=== PATIENT | male | born 1945 | race Caucasian/White ===

== ENCOUNTER 2022-09-02 16:46 | Emergency (ER) | payer MEDICARE, SELFPAY ==
--- NOTE | ~2022-09-02 | US_ITS ---
EXAMINATION: US VENOUS ULTRASOUND WITH DOPPLER LOWER EXTREMITY, BILATERAL CLINICAL INFORMATION: Pain COMPARISON: None TECHNIQUE: Ultrasound of the deep veins is performed from the hip to the calf with compression sonography and color and pulse Doppler assessment. Spectral analysis with color-flow imaging is performed. FINDINGS: RIGHT: There is normal venous compression and respiratory variation and augmented flow. The visualized common femoral vein, superficial femoral vein, profunda femoral vein, popliteal vein, and the trifurcation region shows no evidence of deep venous thrombosis. There is no significant popliteal fossa cyst. LEFT: There is normal venous compression and respiratory variation and augmented flow. The visualized common femoral vein, superficial femoral vein, profunda femoral vein, popliteal vein, and the trifurcation region shows no evidence of deep venous thrombosis. There is no significant popliteal fossa cyst. If the patient's symptoms persist, followup ultrasound in 5 days 7 days might be of value to exclude proximal propagation from a non-visualized calf vein. US/US venous duplex LE BI IMPRESSION: No DVT demonstrated in the both lower extremity.
--- NOTE | ~2022-09-02 | XR_ITS ---
EXAMINATION: XR FOOT, RIGHT CLINICAL INFORMATION: Concern for osteomyelitis of the right second 2 COMPARISON: None TECHNIQUE: 3 views of the right foot. FINDINGS: No bone destruction or abnormal periosteal reaction. No radiographic evidence for osteomyelitis. There is osteopenia. No fracture. No dislocation. Small plantar calcaneal spur. XR/XR foot RT 2V IMPRESSION: No radiographic evidence for osteomyelitis. MRI would be more sensitive for detection of osteomyelitis.
[2022-09-02 17:26] VITALS: BP 150/74; PULSE 67; RESP 16; O2SAT 97; BMI 11.8
[2022-09-02 17:30] VITALS: TEMP 36.7
--- NOTE | 2022-09-02 17:31 | ED.GENADULT ---
HPI - General Adult General Chief complaint: Wound/Laceration Stated complaint: SORES ON R LEG. CATH SITE IRRITATION Time Seen by Provider: 09/02/22 17:31 Source: patient, family () and EMS Mode of arrival: EMS Limitations: no limitations History of Present Illness HPI narrative: Patient is a 77 year old assigned male at with a history of CKD and CVA with remaining right sided paralysis presenting to the emergency department today with bilateral lower leg sores. Patient states that over the last 2 weeks he has noticed that he has wounds on his lower legs and they seem to be getting worse. Patient's states that the patient has significant kidney disease that is followed by a tracer powder blender and his creatinine is usually in the 5s. Patient's states that the patient is almost entirely bed bound and they have providers that make house calls evaluate the patient regularly. Patient denies any dizziness, lightheadedness, abdominal pain, nausea, vomiting, fever, chills, blurry vision, double vision, loss of vision, chest pain, difficulty breathing, shortness of breath, back pain, night sweats, pain with urination, increased urinary frequency, increased urinary urgency, blood in his urine or stool, syncope or a near syncopal episode, recent trauma or falls, bowel incontinence, bladder incontinence, bowel retention, bladder retention, or any other complaints at this time. Onset (ago): week(s) (2) Location: left, right and lower extremity Radiation: non-radiation Severity: mild Severity scale (1-10): 3 Relieving factors: none Exacerbating factors: none Associated symptoms: denies other symptoms Treatments prior to arrival: none Related Data Allergies Allergy/AdvReac Type Severity Reaction Status Date / Time metformin [METFORMIN] Allergy Intermediate RASH Unverified 07/23/20 16:03 Review of Systems Constitutional: Constitutional: Reports no additional constitutional complaints, Denies chills, Denies fever(s) and Denies night sweats Eyes: Eyes: Reports no additional eye complaints, Denies blurry vision, Denies change in vision, Denies diplopia, Denies eye discharge, Denies loss of vision and Denies eye pain ENT: Denies dizziness Cardiovascular: Cardiovascular: Reports no additional cardiovascular complaints, Denies chest pain, Denies lightheadedness, Denies Loss of Consciousness and Denies dyspnea Respiratory: Respiratory: Reports no additional respiratory complaints and Denies dyspnea Gastrointestinal: Gastrointestinal: Reports no additional gastrointestinal complaints, Denies abdominal pain, Denies melena, Denies hematochezia, Denies change in bowel habits and Denies change in stool character Genitourinary: Genitourinary: Reports no additional male genitourinary complaints, Denies hematuria, Denies oliguria, Denies difficulty urinating, Denies dysuria, Denies urinary frequency, Denies urinary hesitancy, Denies urinary incontinence and Denies urinary urgency Musculoskeletal: Musculoskeletal: Reports no additional musculoskeletal complaints, Denies numbness and Denies tingling Integumentary/Breasts: Comments: bilateral lower leg wounds Neurologic: Denies dizziness, Denies loss of vision, Denies numbness and Denies tingling Psychiatric: Psychiatric: Reports no additional psychiatric complaints Endocrine: Endocrine: Reports no additional endocrine complaints Hematologic/Lymphatic: Hematologic/Lymphatic: Reports no additional hematologic/lymphatic complaints Allergic/Immunologic: Allergic/Immunologic: Reports no additional allergic/immunologic complaints PMFSH Past Medical History Attestation statement: The following information was validated with the patient. Source: old records reviewed and obtained from family (patient's ) Social History Social History Advance Directives: No Advance Directives Information Provided: No Physical Exam ED Vital Signs: Vital Signs - 24 hr 09/02/22 17:26 09/02/22 17:30 09/02/22 19:47 Temperature 98.0 F 97.8 F Pulse Rate 67 59 Respiratory Rate 16 18 Blood Pressure 150/74 H 144/67 H Pulse Oximetry 97 97 Oxygen Delivery Method Room Air Room Air BMI result Body Mass Index 11.8 Const General: cooperative, no acute distress, alert and awake Nutritional Appearance: well nourished Orientation/consciousness: patient oriented x3 Limitations: no limitations HENMT Head: Yes normal to inspection and Yes atraumatic Ears: hearing grossly normal bilaterally and external ears normal General nose exam: Normal external nose present, no nasal discharge noted and no epistaxis Face and sinus: Yes normal facial exam, No abrasion and No laceration Mouth: Normal oral and palatal mucosa present, no drooling and no muffled voice Eyes General: appearance normal, both eyes and all related structures Periorbital: periorbital findings normal Eyelids: Yes eyelids normal Conjunctivae: conjunctivae normal Pupils: Equal, round and reactive pupils present EOM: EOMs intact bilaterally Neck Neck: Yes normal visual inspection, Yes full ROM and Yes no lymphadenopathy Chest Chest palpation & inspection: normal inspection of the chest Resp Effort & Inspection: normal respiratory effort and able to speak in complete sentences Auscultation: clear to auscultation bilaterally Cardio Rate: regular rate Rhythm: regular rhythm GI Inspection: Yes normal to inspection Palpation (GI): Soft to palpation, not firm, nontender and no guarding Neuro General: patient oriented x3 and moves all extremities Cranial nerves: Yes Equal, round and reactive pupils present Cognition (Neuro): normal cognition Motor exam (neuro): Other motor observations present (has right sided deficit from previous CVA) Extrem Other: patient's bilateral lower legs show venous stasis dermatitis with scattered open areas and no surrounding erythema or warmth patient's right 2nd toe DIP joint has darker tissue present likely scab vs. necrotic tissue General: Yes capillary refill normal Psych Appearance: grossly normal Mental Status: mental status grossly normal Affect: normal affect Attitude: cooperative Thought process: Normal thought process present Thought content: Normal thought content present Insight: Good insight present (Psych) Medical Decision Making MDM Narrative Medical decision making narrative: Patient is a 77 year old assigned male at with a history of CKD and CVA presenting to the emergency department today with bilateral lower leg wounds. Patient's physical exam showed bilateral lower leg venous stasis dermatitis with scattered open areas throughout with no surrounding erythema or warmth and a small area of darker tissue on the right 2nd toe PIP joint consistent with a scab. Patient's wounds do not appear infected. Patient's blood work showed an elevated CR however, I confirmed with the patient's that this is his baseline. Patient's right foot x-ray and bilateral lower extremity doppler US showed no acute process. I explained my physical exam findings as well as all test results to the patient and the patient's . I answered all questions asked by the patient and the patient's . Case management was contacted to help set up VNA for the patient. I stressed the importance of the patient taking his medication as prescribed. I stressed the importance of the patient following up with his primary care provider, tracer powder blender, and the wound center. I stressed the importance of the patient returning to the emergency department immediately if his symptoms were to worsen or if he were to develop any dizziness, shortness of breath, difficulty breathing, chest pain, blurry vision, loss of vision, nausea, vomiting, abdominal pain, fever, chills, back pain, or any other complaints. Patient and the patient's verbalized agreement and understanding with this treatment plan and discharge. Medical Records Medical records reviewed: Yes I reviewed the patient's medical records. Lab Data Lab results reviewed: Yes I reviewed the patient's lab results. Result diagrams: 09/02/22 19:09/02/22 19: Labs: Lab Results 09/02/22 09/02/22 Range/Units 19: 19: WBC 10.9 H (4.8-10.8) X10*3/uL RBC 3.31 L (4.60-5.80) X10*6/uL Hgb 9.6 L (14.0-18.0) g/dl Hct 29.2 L (42.0-52.0) % MCV 88.2 (80.0-98.0) fL MCH 29.0 (27.0-33.0) pg MCHC 32.9 (31.0-36.0) g/dl RDW 13.1 (11.0-16.0) % Plt Count 228 (160-400) X10*3/uL MPV 8.8 L (9.4-12.4) fL Immature Gran % (Auto) 0.5 H (0.0-0.4) % Neut % (Auto) 69.3 (45-73) % Lymph % (Auto) 13.0 L (20-40) % Mccormick % (Auto) 9.5 (2-11) % Eos % (Auto) 7.2 H (0-4) % Baso % (Auto) 0.5 (0-2) % Lymph # (Auto) 1.4 (1.2-4.9) X10*3/uL Mccormick # (Auto) 1.0 (0.1-1.2) X10*3/uL Eos # (Auto) 0.8 H (0.0-0.4) X10*3/uL Baso # (Auto) 0.1 (0.0-0.2) X10*3/uL Abs Immat Gran (auto) 0.05 H (0.00-0.03) X10*3/uL Absolute Neuts (auto) 7.6 (2.0-8.3) x10*3/uL Absolute Nucleated RBC 0.000 (0.0-0.012) X10*3/uL Nucleated RBC % (auto) 0.0 (0.0-0.2) /100WBC Sodium 140 (135-145) mmol/L Potassium 4.7 (3.3-5.1) mmol/L Chloride 104 (96-108) mmol/L Carbon Dioxide 23 (22-29) mmol/L Anion Gap 18 (12-20) BUN 71 H (9-16) mg/dL Creatinine 5.34 H* (0.5-1.4) mg/dL Estim Creat Clear Calc 6.0 Estimated GFR 11 Random Glucose 113 (60-115) mg/dL Calcium 8.6 (8.4-10.2) mg/dL Magnesium 2.2 (1.6-2.6) mg/dL Total Bilirubin 0.4 (0.0-1.0) mg/dL AST 15 (5-37) U/L ALT 23 (0-40) U/L Alkaline Phosphatase 81 (39-117) U/L Total Creatine Kinase 35 L (38-174) U/L C-Reactive Protein 0.67 H (< or = 0.50) mg/dL Total Protein 6.0 L (6.5-8.0) g/dL Albumin 3.2 L (3.5-5.0) g/dL Imaging Data Right foot x-ray: Attestation: I personally reviewed and interpreted this imaging study as follows: My impression: No acute process. Radiologist's impression: EXAMINATION: XR FOOT, RIGHT CLINICAL INFORMATION: Concern for osteomyelitis of the right second 2? COMPARISON: None? TECHNIQUE: 3 views of the right foot. FINDINGS: No bone destruction or abnormal periosteal reaction. No radiographic evidence for osteomyelitis. There is osteopenia. No fracture. No dislocation. Small plantar calcaneal spur. XR/XR foot RT 2V IMPRESSION: No radiographic evidence for osteomyelitis. MRI would be more sensitive for detection of osteomyelitis. ? Dictated By: Buck Mace MD Signed By: Electronically signed by Buck Mace MD 09/02/22 [id number] Venous US: Attestation: I personally reviewed and interpreted this imaging study as follows: My impression: No acute process. Radiologist's impression: EXAMINATION:? US VENOUS ULTRASOUND WITH DOPPLER LOWER EXTREMITY, BILATERAL CLINICAL INFORMATION:? Pain COMPARISON:? None TECHNIQUE: Ultrasound of the deep veins is performed from the hip to the calf with compression sonography and color and pulse Doppler assessment. Spectral analysis with color-flow imaging is performed. FINDINGS: RIGHT: There is normal venous compression and respiratory variation and augmented flow. The visualized common femoral vein, superficial femoral vein, profunda femoral vein, popliteal vein, and the trifurcation region shows no evidence of deep venous thrombosis. ? There is no significant popliteal fossa cyst. LEFT: There is normal venous compression and respiratory variation and augmented flow. The visualized common femoral vein, superficial femoral vein, profunda femoral vein, popliteal vein, and the trifurcation region shows no evidence of deep venous thrombosis. ? There is no significant popliteal fossa cyst. If the patient's symptoms persist, followup ultrasound in 5 days 7 days might be of value to exclude proximal propagation from a non-visualized calf vein. US/US venous duplex LE BI IMPRESSION: No DVT demonstrated in the both lower extremity. Dictated By: Mason Arnold MD Signed By: Electronically signed by Mason Arnold MD 09/02/222007 Discharge Plan Discharge Clinical Impression: Venous stasis dermatitis Patient Disposition: Home, Self-Care Instructions: Venous Insufficiency (DC) Additional Instructions: Follow up with your primary care provider and the wound center. Return to the emergency department immediately if your symptoms worsen or if you develop any dizziness, shortness of breath, difficulty breathing, chest pain, blurry vision, loss of vision, nausea, vomiting, abdominal pain, fever, chills, back pain, or any other complaints. Referrals: [facility] – [place], [place] Wound Care Management [Provider Group] (Call to establish and follow up with the wound center. ) Jeancarlos Serna MD [Primary Care Provider] - Print Language: American
[2022-09-02 19:06] LABS: MANUAL DIFF FLAG NO
[2022-09-02 19:07] LABS: Basophils Absolute Auto 0.1 X10*3/uL (0.0-0.2); Basophils Percent Auto 0.5 % (0-2); Eosinophils Absolute Auto 0.8 X10*3/uL (0.0-0.4); Eosinophils Percent Auto 7.2 % (0-4); Hematocrit 29.2 % (42.0-52.0); Hemoglobin 9.6 g/dl (14.0-18.0); Imm Gran Abs Auto 0.05 X10*3/uL (0.00-0.03); Imm Gran Pct Auto 0.5 % (0.0-0.4); Lymphocytes Absolute Auto 1.4 X10*3/uL (1.2-4.9); Mean Corpuscular HGB Conc 32.9 g/dl (31.0-36.0); Mean Corpuscular Volume 88.2 fL (80.0-98.0); Mean Platelet Volume 8.8 fL (9.4-12.4); Monocytes Percent Auto 9.5 % (2-11); Neutrophils Absolute Auto 7.6 x10*3/uL (2.0-8.3); Neutrophils Percent Auto 69.3 % (45-73); Platelet Count 228 X10*3/uL (160-400); Red Blood Count 3.31 X10*6/uL (4.60-5.80); Red Cell Distribution Width 13.1 % (11.0-16.0); White Blood Count 10.9 X10*3/uL (4.8-10.8)
[2022-09-02 19:37] LABS: Alanine Aminotransferase 23 U/L (0-40); Albumin Level 3.2 g/dL (3.5-5.0); Alkaline Phosphatase 81 U/L (39-117); Anion Gap 18 (12-20); Aspartate Amino Transferase 15 U/L (5-37); Bilirubin Total 0.4 mg/dL (0.0-1.0); Blood Urea Nitrogen 71 mg/dL (9-16); C Reactive Protein 0.67 mg/dL (< or = 0.50); Calcium 8.6 mg/dL (8.4-10.2); Carbon Dioxide 23 mmol/L (22-29); Chloride 104 mmol/L (96-108); Estimated Glomerular Filt Rate 11; Glucose Random 113 mg/dL (60-115); Magnesium 2.2 mg/dL (1.6-2.6); Potassium 4.7 mmol/L (3.3-5.1); Sodium 140 mmol/L (135-145)
[2022-09-02 19:47] VITALS: BP 144/67; PULSE 59; RESP 18; TEMP 36.6; O2SAT 97
[2022-09-02 21:41] LABS: Erythrocyte Sedimentation Rate 25 MM/HR (0-15)
--- NOTE | 2022-09-02 22:17 | MHC.CM.ED ---
CM met with patient at request of Aubrie GUTIERRES. Pt is aware of discharge and need for VNA to assess his legs. Will speak with pt regarding VNA at patient request. Call to Tiffanie Leach, /HCP ([phone]). HCP is at home. has copies. Tiffanie cares for her since he has his stroke. Pt is home bound and wheelchair bound, but can stand and pivot to chair or to bed. Pt has R sided weakness.Pt has [employer] 1 hour/day/5 days a week and meals on wheels from [facility].PCP is Jeancarlos Serna. Vax/boosted x1/[employer]. Provider is requesting VNA for wound assessments and S&S infection, as pt cannot go to wound care. Referral placed to [facility]. Clinicals uploaded and F2F. would like a phone call with agency in the morning. CM to follow for d/c needs.
--- NOTE | 2022-09-03 11:47 | MHC.CM.PN ---
Addendum entered by Rosita Queen RN 09/03/22 13:03: [facility] IS WILLING TO ACCEPT FOR ASSESSMENT AND CARE PLAN OF WOUNDS. AGENCY TO CONTACT PCP. ZO [phone] AWARE Original Note: POST-DC NOTE PATIENT WAS NOT SEEN BY WOUND CARE AND DOES NOT HAVE ANY WOUND CARE ORDERS. HE ALSO HAS A CHRONIC [place] CATH (APPROX 1 YEAR) THAT IS MANAGED BY . PCP VISITS [id number] PATIENT IS BED BOUND. PCP NOT EXPECTED TO VISIT UNTIL MIDDLE OF MONTH OF SEPTEMBER. CASE MANAGEMENT ATTEMPTING TO SECURE ASSIST FOR PATIENT, WHO REPORTEDLY HAS HAD THESE WOUNDS FOR ONE MONTH
== END 2022-09-02 21:14 | disposition home or self-care (01) ==
PROVIDERS: Physician Assistant Medical; Emergency Provider Emergency Medicine Emergency Medical Services; PCP Internal Medicine
DX: I87.2 Venous insufficiency (chronic) (peripheral) (principal); R60.0 Localized edema; M79.671 Pain in right foot; Z79.899 Other long term (current) drug therapy
CPT/HCPCS: 36415; 73620; 80053; 82550; 83735; 85025; 85652; 86140; 93970; 99282; 99284

== ENCOUNTER 2022-12-16 10:03 | Inpatient (IN) | payer MEDICARE, SELFPAY ==
--- NOTE | ~2022-12-16 | IR_ITS ---
PROCEDURE: IR INSERTION OF CENTRAL VENOUS CATHETER CLINICAL INFORMATION: Chronic kidney disease. 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 COMPARISON: None TECHNIQUE: Procedure and risks and benefits including bleeding, infection and pneumothorax were discussed with the patient's healthcare proxy by telephone and informed consent was obtained. All elements of maximal sterile barrier technique followed including use of cap, mask, sterile gown, sterile gloves, a sterile full body drape and hand hygiene. Also followed skin preparation with 2% chlorhexidine for cutaneous antisepsis, and sterile ultrasound preparation with sterile gel and probe cover when applicable. The right neck and chest were prepped and draped in the usual sterile fashion. The skin and soft tissues of the right lower neck were anesthetized with 1% lidocaine plain. A small incision was made. Using ultrasound guidance and a 5 [place] micropuncture system, right internal jugular vein access was obtained. Over an 0.018 wire, a 5 [place] dilator was positioned in the SVC. The skin and soft tissues of the right upper anterior chest were anesthetized with 1% lidocaine plain. A small incision was made. A subcutaneous tunnel from the chest to the neck incision was anesthetized with 1% lidocaine plain. Using a tunneler, a 5 [place] single-lumen Proline catheter was tunneled from the chest to the neck incision. An 0.025 guidewire was advanced through the 5 [place] dilator into the IVC. A 5 [place] dilator was exchanged for a 6 [place] peel-away sheath. Using bent wire technique, catheter length was estimated and the catheter was cut. Catheter was fed out centrally through the peel-away sheath. Catheter length is 22 cm. Catheter tip is at the cavoatrial junction. The neck incision was closed using a 3-0 absorbable subcuticular suture. Chest incision was closed using a 3-0 absorbable mattress suture. Real-time ultrasound guidance was used to document venous entry and patency. Continuous hemodynamic monitoring was performed by registered nurse under my direct supervision. ANESTHESIA GIVEN: Patient received Versed 0.5 mg and fentanyl 25 mcg intravenously during the procedure. TOTAL SEDATION TIME: Total sedation time was 25 minutes. DAP: 33 Gy-cm2 FLUOROSCOPY TIME 0.3 minutes. FLUOROSCOPIC IMAGES: One saved. ULTRASOUND IMAGES: One saved. FINDINGS: There is a right internal jugular 5 [place] Proline catheter with tip projecting over the cavoatrial junction. IR/IR us guide venous access IMPRESSION: Right internal jugular 5 [place] single-lumen Proline catheter placement.
--- NOTE | ~2022-12-16 | XR_ITS ---
EXAMINATION: XR FOOT, LEFT CLINICAL INFORMATION: Left heel ulcer COMPARISON: None TECHNIQUE: AP, lateral, and oblique views of the left foot. FINDINGS: No fracture or dislocation. Hammertoe positioning of the digits. Osteopenia. No acute fracture. There is soft tissue defect over the posterior aspect of the left calcaneus. There is subtle erosion of the underlying bone. Prominent soft tissue calcification along the Achilles tendon. No ankle joint effusion. XR/XR foot LT min 3V IMPRESSION: Soft tissue defect over the posterior aspect of the calcaneus. There is subtle erosion of the underlying bone. This is concerning for osteomyelitis. Consider MRI evaluation if clinically indicated for further delineation.
--- NOTE | ~2022-12-16 | CT_ITS ---
EXAMINATION: CT FOOT WITHOUT CONTRAST, LEFT CLINICAL INFORMATION: Osteomyelitis. COMPARISON: Left foot radiographs dated 12/16/2022. TECHNIQUE: Contiguous axial CT images of the left foot were obtained without contrast. Multiplanar reformats were provided and reviewed. This CT examination was performed using dose optimization techniques as appropriate, variously including the following: *Automated exposure control *Adjustment of mA and/or kV according to patient size (this includes techniques or standardized protocols for targeted exams where dose is matched to indication/reason for exam; i.e. extremities or head) *Use of iterative reconstruction technique. DOSE: 221 mGy-cm. FINDINGS: Soft tissue ulceration at the dorsal aspect of the heel with an overlying bandage. The ulceration appears to measure up to 2.4 cm in craniocaudal dimension. There is adjacent cortical erosion and mild periosteal reaction at the posterior calcaneus measuring up to 1.9 x 1.3 cm (ML by CC), consistent with acute osteomyelitis. No acute fracture or dislocation. The ankle mortise is maintained. No talar osteochondral lesion. Plantar calcaneal spur. Severe joint space narrowing with marginal osteophytes and subchondral cystic change at the 1st metatarsophalangeal joint and hallux sesamoids. Corticated ossification in the region of the distal Achilles tendon with the tendon appearing attenuated and nearly completely absent distal to this area. Findings could represent dystrophic ossification related to remote trauma or a remote avulsion injury. Evaluation of the tendon is limited on CT examination. The remaining visualized flexor and extensor tendons are grossly intact, however, evaluation significantly limited. Diffuse muscle atrophy. Circumferential subcutaneous edema without organized fluid collection or abscess formation. CT/CT foot LT wo IV con IMPRESSION: 1. Soft tissue ulceration at the dorsal aspect of the heel measuring up to 2.4 cm in craniocaudal dimension. Adjacent cortical erosion and periosteal reaction at the posterior calcaneus measuring up to 1.9 cm, consistent with acute osteomyelitis. 2. Corticated ossification in the region of the distal Achilles tendon with the tendon appearing attenuated and nearly completely absent distal to this area. Findings could represent dystrophic ossification related to remote trauma or a remote avulsion injury. Evaluation of the tendon is limited on CT examination. 3. Circumferential subcutaneous edema without organized fluid collection or abscess formation. 4. 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
--- NOTE | ~2022-12-16 | US_ITS ---
EXAMINATION: US VENOUS ULTRASOUND WITH DOPPLER LOWER EXTREMITY, LEFT CLINICAL INFORMATION: Left lower extremity swelling COMPARISON: None TECHNIQUE: Ultrasound of the deep veins is performed from the hip to the calf with compression sonography and color and pulse Doppler assessment. Spectral analysis with color-flow imaging is performed. FINDINGS: There is normal venous compression and respiratory variation and augmented flow. The visualized common femoral vein, superficial femoral vein, profunda femoral vein, popliteal vein, and the trifurcation region shows no evidence of deep venous thrombosis. There is no significant popliteal fossa cyst. There is prominent subcutaneous popliteal fossa edema. If the patient's symptoms persist, followup ultrasound in 5 days 7 days might be of value to exclude proximal propagation from a non-visualized calf vein. US/US venous duplex LE LT IMPRESSION: No DVT demonstrated in the left lower extremity.
--- NOTE | ~2022-12-16 | IR_ITS ---
PROCEDURE: IR INSERTION OF CENTRAL VENOUS CATHETER CLINICAL INFORMATION: Chronic kidney disease. 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 COMPARISON: None TECHNIQUE: Procedure and risks and benefits including bleeding, infection and pneumothorax were discussed with the patient's healthcare proxy by telephone and informed consent was obtained. All elements of maximal sterile barrier technique followed including use of cap, mask, sterile gown, sterile gloves, a sterile full body drape and hand hygiene. Also followed skin preparation with 2% chlorhexidine for cutaneous antisepsis, and sterile ultrasound preparation with sterile gel and probe cover when applicable. The right neck and chest were prepped and draped in the usual sterile fashion. The skin and soft tissues of the right lower neck were anesthetized with 1% lidocaine plain. A small incision was made. Using ultrasound guidance and a 5 [place] micropuncture system, right internal jugular vein access was obtained. Over an 0.018 wire, a 5 [place] dilator was positioned in the SVC. The skin and soft tissues of the right upper anterior chest were anesthetized with 1% lidocaine plain. A small incision was made. A subcutaneous tunnel from the chest to the neck incision was anesthetized with 1% lidocaine plain. Using a tunneler, a 5 [place] single-lumen Proline catheter was tunneled from the chest to the neck incision. An 0.025 guidewire was advanced through the 5 [place] dilator into the IVC. A 5 [place] dilator was exchanged for a 6 [place] peel-away sheath. Using bent wire technique, catheter length was estimated and the catheter was cut. Catheter was fed out centrally through the peel-away sheath. Catheter length is 22 cm. Catheter tip is at the cavoatrial junction. The neck incision was closed using a 3-0 absorbable subcuticular suture. Chest incision was closed using a 3-0 absorbable mattress suture. Real-time ultrasound guidance was used to document venous entry and patency. Continuous hemodynamic monitoring was performed by registered nurse under my direct supervision. ANESTHESIA GIVEN: Patient received Versed 0.5 mg and fentanyl 25 mcg intravenously during the procedure. TOTAL SEDATION TIME: Total sedation time was 25 minutes. DAP: 33 Gy-cm2 FLUOROSCOPY TIME 0.3 minutes. FLUOROSCOPIC IMAGES: One saved. ULTRASOUND IMAGES: One saved. FINDINGS: There is a right internal jugular 5 [place] Proline catheter with tip projecting over the cavoatrial junction. IR/IR cvc insert non tunnel IMPRESSION: Right internal jugular 5 [place] single-lumen Proline catheter placement.
--- NOTE | 2022-12-16 10:24 | ED_ITS ---
HPI - General Adult General Chief complaint: Wound/Laceration Stated complaint: Poss L heel infection per EMS Time Seen by Provider: 12/16/22 10:06 Source: patient, family and EMS Mode of arrival: EMS Limitations: physical limitation (aphasia s/p CVA) History of Present Illness HPI narrative: Patient is a 77-year-old male presents emergency department via EMS. Obtained history from EMS personnel, requiring evaluation of left heel wound, that has been progressively worsening. Patient with significant aphasia at baseline, it is difficult to obtain history/ros from patient. Patient does have a dressing intact to the left heel, when asked to is changing this dressing he states Tiffanie , majority of his answers to questions are yes/no. Tiffanie is his , will contact her for additional information. when asked denies fevers, pain, numbness or tingling to the leg. Related Data Home Medications Medication Instructions Recorded Confirmed amlodipine 5 mg tablet 1 tab PO DAILY 12/16/22 12/16/22 atorvastatin 40 mg tablet 1 tab PO DAILY 12/16/22 12/16/22 calcitriol 0.25 mcg capsule 1 cap PO DAILY 12/16/22 12/16/22 carvedilol 25 mg tablet 1 tab PO DAILY 12/16/22 12/16/22 clonidine HCl 0.1 mg tablet 1 tab PO DAILY 12/16/22 12/16/22 doxycycline hyclate 100 mg capsule 1 cap PO BID 12/16/22 12/16/22 finasteride 5 mg tablet 1 tab PO DAILY 12/16/22 12/16/22 Allergies Allergy/AdvReac Type Severity Reaction Status Date / Time metformin [METFORMIN] Allergy Intermediate RASH Unverified 07/23/20 16:03 Review of Systems Review of Systems: Yes Unobtainable due to mental condition ( History of CVA, aphasia) [facility] Past Medical History Attestation statement: The following information was validated with the patient. Source: old records reviewed Medical History (Updated 12/16/22 @ 18:20 by Aspen Romero CNP) CVA (cerebral vascular accident) Social History Social History Alcohol intake: never Smoked in Last 30 Days: No Use of substances other than those prescribed or required for medical reasons: No Advance Directives: No Advance Directives Information Provided: Yes Physical Exam ED Vital Signs: Vital Signs - 24 hr 12/16/22 10:40 12/16/22 12:28 12/16/22 15:10 Temperature 98.1 F 97.9 F 98.6 F Pulse Rate 68 61 65 Respiratory Rate 14 16 16 Blood Pressure 145/65 H 131/59 L Pulse Oximetry 97 97 98 Oxygen Delivery Method Room Air Room Air Room Air BMI result Body Mass Index 28.0 Appearance: Alert. oriented to person. No acute distress.?Normal affect. Eyes: Pupils equal, round and reactive to light.? ENT: Pharynx normal.?? Neck: Normal inspection.? Neck supple.?? CVS: Heart sounds normal. Normal heart rate and rhythm.? Pulses normal.?? Respiratory: No respiratory distress.? Lung sounds clear to auscultation bilaterally?? Abdomen: Soft and non-tender. Normoactive bowel sounds. Skin: Skin warm and dry.? Normal skin color.? ? Extremities: No calf ttp? Neuro: Moves all extremities spontaneously. Sensation intact bilaterally. Course Reevaluation(s) Reevaluation #1: Called and spoke with patients spouse, Tiffanie Leach. She reports 2.5 weeks ago developed left heel wound, size of a pea. increasing in size. Left leg swelling over past few days, VNA in home, has been dressing the wound. VNA today called PCP, who advised Transfer to ER for further evaluation. Tiffanie also reports wound was evaluated by [facility], 5 days ago, received prescription for Doxycycline, despite being on this for the past 5 days has become increasingly worse in appearance, with increasing left leg swelling. She denies any known fevers for patient, states patient has not been reporting pain. He is nonambulatory at baseline, using wheelchair due to CVA. His primary care provider is Abbi Olmos NP through [facility]. Time: 10:24 Reevaluation #2: CBC reveals no leukocytosis There is however a left shift, has a normocytic anemia which appears slightly worse than prior labs August 2022, down 1 point, No recent CBC received from [facility] for comparison, no signs of active bleeding. CMP reveals creatinine 6.02, reviewed records obtained from [facility], appears slightly elevated from baseline; 11/04 BUN 58 and creatinine 5.7 / 12/02 BUN 67 and creatinine 5.7. Ultrasound reveals no evidence of DVT to the left lower extremity. X-ray imaging with soft tissue defect over the posterior aspect of the calcaneus with subtle erosion of the underlying bone concerning for osteomyelitis, at this time blood cultures and lactic acid ordered, will cover with ceftriaxone. ESR is elevated at 67, CRP 4.32. Time: 13:53 Reevaluation #3: Consulted with hospitalist Service, patient accepted for admission to Medicine Service under Dr. Real. patient updated on plan of care. Medications Administered Generic Name Dose Route Start Last Admin Trade Name Freq PRN Reason Stop Dose Admin Heparin Sodium (Porcine) 5,000 unit 12/16/22 17:00 12/16/22 17:24 Heparin Sodium,Porcine 5,000 Unit/Ml Vial SUBCUT 5,000 unit Q12H ROBBY Administration Discontinued Medications Generic Name Dose Route Start Last Admin Trade Name Freq PRN Reason Stop Dose Admin Sodium Chloride 1,000 mls @ 999 mls/hr 12/16/22 13:45 12/16/22 15:09 Ns IV 12/16/22 14:45 999 mls/hr .Q1H1M ROBBY Administration Ceftriaxone Sodium 2 gm/ 50 mls @ 100 mls/hr 12/16/22 13:59 12/16/22 16:07 Sodium Chloride IV 12/16/22 14:28 Infused ONCE ONE Infusion Cefepime HCl 2 gm/ Sodium 50 mls @ 100 mls/hr 12/16/22 16:57 12/16/22 17:24 Chloride IV 12/16/22 17:26 100 mls/hr ONCE ONE Administration Medical Decision Making Medical Decision Making [facility] Narrative: patient is a 77-year-old male with past medical history of CVA, residual right- sided paralysis, aphasia, hypertension, diabetes, CKD presenting to emergency department for evaluation of left heel wound. Admission/Observation Consideration of admission/observation: Escalation of care including admission/observation considered Consult Healthcare Provider Management of the patient was discussed with: Hospitalist Lab Data [facility] Lab Attestation statement: I reviewed the patient's lab results. 12/16/22 11:31 12/16/22 11:31 Labs: Lab Results 12/16/22 12/16/22 12/16/22 Range/Units 11:31 11:31 11:31 WBC 8.9 (4.8-10.8) X10*3/uL RBC 3.15 L (4.60-5.80) X10*6/uL Hgb 8.7 L (14.0-18.0) g/dl Hct 26.3 L (42.0-52.0) % MCV 83.5 (80.0-98.0) fL MCH 27.6 (27.0-33.0) pg MCHC 33.1 (31.0-36.0) g/dl RDW 12.8 (11.0-16.0) % Plt Count 344 D (160-400) X10*3/uL MPV 8.7 L (9.4-12.4) fL Immature Gran % (Auto) 0.3 (0.0-0.4) % Neut % (Auto) 76.1 H (45-73) % Lymph % (Auto) 12.0 L (20-40) % Castro % (Auto) 7.1 (2-11) % Eos % (Auto) 3.9 (0-4) % Baso % (Auto) 0.6 (0-2) % Lymph # (Auto) 1.1 L (1.2-4.9) X10*3/uL Castro # (Auto) 0.6 (0.1-1.2) X10*3/uL Eos # (Auto) 0.4 (0.0-0.4) X10*3/uL Baso # (Auto) 0.1 (0.0-0.2) X10*3/uL Abs Immat Gran (auto) 0.03 (0.00-0.03) X10*3/uL Absolute Neuts (auto) 6.8 (2.0-8.3) x10*3/uL Absolute Nucleated RBC 0.000 (0.0-0.012) X10*3/uL Nucleated RBC % (auto) 0.0 (0.0-0.2) /100WBC ESR 67 H (0-15) MM/HR Sodium 136 (135-145) mmol/L Potassium 5.1 (3.3-5.1) mmol/L Chloride 104 (96-108) mmol/L Carbon Dioxide 22 (22-29) mmol/L Anion Gap 15 (12-20) BUN 79 H (9-16) mg/dL Creatinine 6.02 H* (0.5-1.4) mg/dL Estim Creat Clear Calc 11.3 Estimated GFR 9 Random Glucose 138 H (60-115) mg/dL Lactic Acid (0.5-2.0) mmol/L Calcium 8.5 (8.4-10.2) mg/dL Iron 35 L (45-160) mcg/dL TIBC 132 L (228-428) mcg/dL % Saturation 27 (15-50) % Unsat Iron Binding 97 ug/dL Ferritin 548 H (20-250) ng/mL Total Bilirubin 0.5 (0.0-1.0) mg/dL AST 21 (5-37) U/L ALT 43 H (0-40) U/L Alkaline Phosphatase 92 (39-117) U/L C-Reactive Protein 4.32 H (< or = 0.50) mg/dL Total Protein 5.9 L (6.5-8.0) g/dL Albumin 3.0 L (3.5-5.0) g/dL Vitamin B12 317 (200-900) pg/mL Folate 8.1 (> or = 4.0) ng/mL 12/16/22 Range/Units 14:31 WBC (4.8-10.8) X10*3/uL RBC (4.60-5.80) X10*6/uL Hgb (14.0-18.0) g/dl Hct (42.0-52.0) % MCV (80.0-98.0) fL MCH (27.0-33.0) pg MCHC (31.0-36.0) g/dl RDW (11.0-16.0) % Plt Count (160-400) X10*3/uL MPV (9.4-12.4) fL Immature Gran % (Auto) (0.0-0.4) % Neut % (Auto) (45-73) % Lymph % (Auto) (20-40) % Castro % (Auto) (2-11) % Eos % (Auto) (0-4) % Baso % (Auto) (0-2) % Lymph # (Auto) (1.2-4.9) X10*3/uL Castro # (Auto) (0.1-1.2) X10*3/uL Eos # (Auto) (0.0-0.4) X10*3/uL Baso # (Auto) (0.0-0.2) X10*3/uL Abs Immat Gran (auto) (0.00-0.03) X10*3/uL Absolute Neuts (auto) (2.0-8.3) x10*3/uL Absolute Nucleated RBC (0.0-0.012) X10*3/uL Nucleated RBC % (auto) (0.0-0.2) /100WBC ESR (0-15) MM/HR Sodium (135-145) mmol/L Potassium (3.3-5.1) mmol/L Chloride (96-108) mmol/L Carbon Dioxide (22-29) mmol/L Anion Gap (12-20) BUN (9-16) mg/dL Creatinine (0.5-1.4) mg/dL Estim Creat Clear Calc Estimated GFR Random Glucose (60-115) mg/dL Lactic Acid 0.7 (0.5-2.0) mmol/L Calcium (8.4-10.2) mg/dL Iron (45-160) mcg/dL TIBC (228-428) mcg/dL % Saturation (15-50) % Unsat Iron Binding ug/dL Ferritin (20-250) ng/mL Total Bilirubin (0.0-1.0) mg/dL AST (5-37) U/L ALT (0-40) U/L Alkaline Phosphatase (39-117) U/L C-Reactive Protein (< or = 0.50) mg/dL Total Protein (6.5-8.0) g/dL Albumin (3.5-5.0) g/dL Vitamin B12 (200-900) pg/mL Folate (> or = 4.0) ng/mL Independent Interpretation I performed an independent interpretation of an: Plain X-Ray ( I personally interpreted x-ray of the right heel and agree with radiologist impression.) and Ultrasound Radiology Impression Radiologist Impression: XR/XR foot LT min 3V IMPRESSION: Soft tissue defect over the posterior aspect of the calcaneus. There is subtle erosion of the underlying bone. This is concerning for osteomyelitis. Consider MRI evaluation if clinically indicated for further delineation. US/US venous duplex LE LT IMPRESSION: No DVT demonstrated in the left lower extremity. Critical Care Time Critical Care Time Critical Care Time: Yes Total Critical Care Time: 30 Attestation: I personally attest to this critical care time spent taking care of the patient exclusive of all other billable procedures was approximately 30 minutes including initial evaluation of patient, ordering tests, x-ray interpretation, EKG interpretation, medical consultation, documentation, re-evaluation. Discharge Plan Discharge Clinical Impression: Wound of left foot, CKD (chronic kidney disease) Patient Disposition: Admitted As Inpatient
--- NOTE | 2022-12-16 10:30 | MHC.EDTECH ---
This PCT with nurse present . Patient has a wound to left heal. Wound was cleans with normal saline follow by telfa and bulk dressing .Dressing is timed and dated .Left leg elevated on pillow.
[2022-12-16 10:40] VITALS: BP 180/70; PULSE 68; PULSE 73; RESP 14; TEMP 36.7; O2SAT 96; O2SAT 97; BMI 28.0
--- NOTE | 2022-12-16 10:55 | PC.NURSE ---
pt off to xray via stretcher.
--- NOTE | 2022-12-16 11:00 | PC.NURSE ---
pt has large ulcer to l heel which is odorous. area was cleansed and dressed with clean dry dressing. small amt of yellow drainage noted. small eschar area noted on wound. per mlp (sharee, states per ) wound is 2.5wks old and pt has been on abt. l lower leg is swollen. leg is elevated on a pillow.
[2022-12-16 11:37] LABS: MANUAL DIFF FLAG NO
[2022-12-16 11:48] LABS: Basophils Absolute Auto 0.1 X10*3/uL (0.0-0.2); Basophils Percent Auto 0.6 % (0-2); Eosinophils Absolute Auto 0.4 X10*3/uL (0.0-0.4); Eosinophils Percent Auto 3.9 % (0-4); Hematocrit 26.3 % (42.0-52.0); Hemoglobin 8.7 g/dl (14.0-18.0); Imm Gran Abs Auto 0.03 X10*3/uL (0.00-0.03); Imm Gran Pct Auto 0.3 % (0.0-0.4); Lymphocytes Absolute Auto 1.1 X10*3/uL (1.2-4.9); Mean Corpuscular HGB Conc 33.1 g/dl (31.0-36.0); Mean Corpuscular Hemoglobin 27.6 pg (27.0-33.0); Mean Corpuscular Volume 83.5 fL (80.0-98.0); Mean Platelet Volume 8.7 fL (9.4-12.4); Monocytes Absolute Auto 0.6 X10*3/uL (0.1-1.2); Monocytes Percent Auto 7.1 % (2-11); Neutrophils Absolute Auto 6.8 x10*3/uL (2.0-8.3); Neutrophils Percent Auto 76.1 % (45-73); Platelet Count 344 X10*3/uL (160-400); Red Blood Count 3.15 X10*6/uL (4.60-5.80); Red Cell Distribution Width 12.8 % (11.0-16.0); White Blood Count 8.9 X10*3/uL (4.8-10.8)
[2022-12-16 12:28] VITALS: BP 145/65; PULSE 61; RESP 16; TEMP 36.6; O2SAT 97
[2022-12-16 12:32] LABS: Erythrocyte Sedimentation Rate 67 MM/HR (0-15)
[2022-12-16 13:03] LABS: Alanine Aminotransferase 43 U/L (0-40); Alkaline Phosphatase 92 U/L (39-117); Anion Gap 15 (12-20); Aspartate Amino Transferase 21 U/L (5-37); Bilirubin Total 0.5 mg/dL (0.0-1.0); Blood Urea Nitrogen 79 mg/dL (9-16); C Reactive Protein 4.32 mg/dL (< or = 0.50); Calcium 8.5 mg/dL (8.4-10.2); Carbon Dioxide 22 mmol/L (22-29); Chloride 104 mmol/L (96-108); Creatinine Clr Calc Pharmacy 11.3; Estimated Glomerular Filt Rate 9; Glucose Random 138 mg/dL (60-115); Potassium 5.1 mmol/L (3.3-5.1); Sodium 136 mmol/L (135-145); Total Protein 5.9 g/dL (6.5-8.0)
[2022-12-16 14:52] LABS: Lactic Acid 0.7 mmol/L (0.5-2.0)
--- NOTE | 2022-12-16 15:05 | MHC.EDTECH ---
patient ate 100% of his food , change lined and reposition patient . relaxing watching TV.
[2022-12-16] MEDS: cefTRIAXone sodium 2 GM in 0.9 % Sodium Chloride 50 ML IV (15:09)
[2022-12-16] MEDS: 0.9 % Sodium Chloride 1,000 ML 999 ML IV (15:09)
[2022-12-16 15:10] VITALS: BP 131/59; PULSE 65; RESP 16; TEMP 37; O2SAT 98
--- NOTE | 2022-12-16 15:40 | PHA.MEDREC ---
Pharmacy Consult ? Medication Reconciliation Pharmacy has completed the medication reconciliation. Pt takes coreg 25 mg daily and clonidine 0.1 mg daily per
--- NOTE | 2022-12-16 16:01 | PM.IMHP ---
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 Pt accompanied by supplements HPI. Pt has right-sided hemiparesis s/p CVA 5 1/2 years ago and is essentially bedbound. states that patient developed a tiny graciela on his foot 2 and half weeks ago that continued to grow and develop quickly. Patient was unable to see PCP but wound was seen and cared for by VNA. Wound also evaluated by [facility] who prescribed Doxycycline 5 days ago. Left leg swelling began a few days ago. Wound continued to grow and swelling increased until PCP called and pt told to go to ED for evaluation. Patient's only other complaint is an occasional dry chronic cough. Pt denies pain in the foot or leg. No fever, chills, nausea, vomiting. No abdominal pain. No headache, vision changes. No chest pain/pressure, palpitations. Denies shortness of breath. ? In the ED patient was afebrile. Labs were significant for no leukocytosis, H&H of 8.7/26.3, creatinine 6.02, BUN 79, lactic acid WNL at 0.7, ESR elevated at 67, C-reactive protein elevated at 4.32. X-ray of foot showed soft tissue defect over the posterior aspect of the calcaneus with subtle erosion of the underlying bone, concerning for osteomyelitis. Venous duplex showed no DVT in the left lower extremity. Pt was treated with ceftriaxone. Pt will be admitted to the hospital for treatment and further evaluation left heel wound concerning for osteomyelitis. [facility] Medical History (Updated 12/16/22 @ 18:20 by Aspen Romero CNP) CVA (cerebral vascular accident) Social History Household Members: Unknown / Unable to assess Housing: House Do you presently have visiting nurse or other home services: Yes Alcohol intake: never Patient Tobacco Use Status: Never used Tobacco Smoked in Last 30 Days: No Use of substances other than those prescribed or required for medical reasons: No Currently Displaying Signs/Symptoms of Drug Intoxication Withdrawal: No Have you been hit, kicked, punched, or otherwise hurt by someone within the past year? If so, by whom?: No Do you feel safe in your current relationship?: Yes Is there a partner from a previous relationship who is making you feel unsafe now?: No Are you made to feel afraid or neglected: No Advance Directives: No Advance Directives Information Provided: Yes Do you have thoughts of harming others: None Do you have a plan to hurt others: No Plan Recently lost weight without trying: No How much weight loss: Not applicable Eating poorly because of decreased appetite: No Nutrition screen score: 0 Nutrition Risks: No Nutritional Risk Poor oral hygiene: No Meds Allergies Allergy/AdvReac Type Severity Reaction Status Date / Time metformin [METFORMIN] Allergy Intermediate RASH Unverified 07/23/20 16:03 Active Medications: Current Medications Pharmacy Consult (Consult Rx Perform Med Rec) 1 each MISCELLANE ONCE PRN PRN Reason: Consult order Home Medications Medication Instructions Recorded Confirmed Last Taken Type amlodipine 5 mg tablet 1 tab PO DAILY 12/16/22 12/16/22 12/16/22 History atorvastatin 40 mg tablet 1 tab PO DAILY 12/16/22 12/16/22 12/16/22 History calcitriol 0.25 mcg capsule 1 cap PO DAILY 12/16/22 12/16/22 12/16/22 History carvedilol 25 mg tablet 1 tab PO DAILY 12/16/22 12/16/22 12/16/22 History clonidine HCl 0.1 mg tablet 1 tab PO DAILY 12/16/22 12/16/22 12/16/22 History doxycycline hyclate 100 mg capsule 1 cap PO BID 12/16/22 12/16/22 12/16/22 History finasteride 5 mg tablet 1 tab PO DAILY 12/16/22 12/16/22 12/16/22 History Physical Exam Vital Signs and Narrative: Vital Signs: Last Vital Signs Temp 98.6 F 12/16/22 15:10 Pulse 65 12/16/22 15:10 Resp 16 12/16/22 15:10 BP 131/59 L 12/16/22 15:10 Pulse Ox 98 12/16/22 15:10 O2 Del Method 12/16/22 15:10 BMI result Body Mass Index 28.0 Constitutional: Alert, in no acute distress. Mental Status: Oriented to person, place and time. Eyes: Pupils are equal, round, and reactive to light. Ear, Nose, and Throat: Oropharynx clear, mucous membranes moist. Ears and nose without deformities. Trachea midline. Respiratory: Clear to auscultation bilaterally. No wheezing, rales, or rhonchi. Cardiovascular: S1, S2 regular. No murmurs, rubs, or gallops. Gastrointestinal: Abdomen soft, non-tender, non-distended. Normal bowel sounds. Neurologic: Pt with right-sided paralysis. Musculoskeletal: Right arm and hand contracted. Extremities: Open wound on left heel, as pictured below. Lower left leg swelling and warmth, as below. Psychiatric: Normal mood and affect. Results Labs 12/16/22 11:31 12/16/22 11:31 Labs: Laboratory Results - last 24 hr 12/16/22 12/16/22 12/16/22 11:31 11:31 11:31 MCV 83.5 MCH 27.6 MCHC 33.1 RDW 12.8 Plt Count 344 D MPV 8.7 L Immature Gran % (Auto) 0.3 Neut % (Auto) 76.1 H Lymph % (Auto) 12.0 L Mineral % (Auto) 7.1 Eos % (Auto) 3.9 Baso % (Auto) 0.6 Lymph # (Auto) 1.1 L Mineral # (Auto) 0.6 Eos # (Auto) 0.4 Baso # (Auto) 0.1 Abs Immat Gran (auto) 0.03 Absolute Neuts (auto) 6.8 Absolute Nucleated RBC 0.000 Nucleated RBC % (auto) 0.0 ESR 67 H Anion Gap 15 Estim Creat Clear Calc 11.3 Estimated GFR 9 Random Glucose 138 H Lactic Acid Calcium 8.5 Total Bilirubin 0.5 AST 21 ALT 43 H Alkaline Phosphatase 92 C-Reactive Protein 4.32 H Total Protein 5.9 L Albumin 3.0 L 12/16/22 14:31 MCV MCH MCHC RDW Plt Count MPV Immature Gran % (Auto) Neut % (Auto) Lymph % (Auto) Mineral % (Auto) Eos % (Auto) Baso % (Auto) Lymph # (Auto) Mineral # (Auto) Eos # (Auto) Baso # (Auto) Abs Immat Gran (auto) Absolute Neuts (auto) Absolute Nucleated RBC Nucleated RBC % (auto) ESR Anion Gap Estim Creat Clear Calc Estimated GFR Random Glucose Lactic Acid 0.7 Calcium Total Bilirubin AST ALT Alkaline Phosphatase C-Reactive Protein Total Protein Albumin Imaging Radiologist's Impressions: Impressions Venous Duplex 12/16/22 11:05 IMPRESSION: No DVT demonstrated in the left lower extremity. Foot X-Ray 12/16/22 11:10 IMPRESSION: Soft tissue defect over the posterior aspect of the calcaneus. There is subtle erosion of the underlying bone. This is concerning for osteomyelitis. Consider MRI evaluation if clinically indicated for further delineation. 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 Pt will be admitted to the hospital for treatment and further evaluation left heel wound concerning for osteomyelitis. Left heel wound concerning for osteomyelitis X-ray of left foot shows soft tissue defect over the posterior aspect of the calcaneus with subtle erosion of the underlying bone, concerning for osteomyelitis Elevated CRP and ESR, no leukocytosis or fever Patient does not meet sepsis criteria IV abx: Doxycycline and cefepime Keep foot elevated off bed Wound care consult ID consult General surgery consult CKD Patient's creatinine 6.02, last measured at [facility] on 12/02/2022 at 5.7 with BUN 67 Pt received 1L IVF in ED Follow labs Nephrology consult Anemia, chronic Patient's H&H of 8.7/26.3, slightly lower than baseline No obvious source of bleeding, pt denies hematemesis, hematochezia, melena Iron studies, B12, folate Hx of CVA with right-sided hemiparesis Pt seems stable, at baseline Pt eats regular diet with thin liquids at home Pt positioning q2hrs HLD Continue home meds HTN Continue home meds DNR/DNI Attending:?Dr. Real DVT Prophylaxis: Heparin Pt will require a hospitalization of at least two nights for treatment of?left heel wound concerning for osteomyelitis with IV abx. Time Spent With Patient Time: Total time managing care of this patient today ____ minutes. Quality Stroke Does the patient have a stroke diagnosis?: No VTE Prior VTE?: No VTE Risk Level:: Medical - moderate - high VTE Device Contraindication: Treatment Not Indicated VTE Drug Contraindication: N/A - Med Ordered
--- NOTE | 2022-12-16 16:55 | P.EN_ITS ---
Event Note Date of Service: 12/17/22 Event Note: This patient is seen and examined: 77-year-old male with multiple comorbidities including hypertension, Hypercholesteremia, ckd 5?,history of CVA and right-sided weakness: Came to the hospital because of possible leg swelling as well as wound on the left heel area : As per the ED documentation as well as talking to his : Patient had a small wound to and have week ago but subsequently started to get enlarged and is was given outpatient doxycycline 5 days ago and but wound is still getting worse and subsequently was brought to the emergency room. Patient has some soreness but denies any significant pain Denies any chest pain shortness breath or fever or chills or nausea vomiting Lab imaging: ESR and CRP elevated, lactic acid normal, blood culture pending XR foot LT min 3V IMPRESSION: Soft tissue defect over the posterior aspect of the calcaneus. There is subtle erosion of the underlying bone. This is concerning for osteomyelitis. Consider MRI evaluation if clinically indicated for further delineation. Physical exam: Appearance: Alert.? Oriented X3.? cvs: rrr, [id number] , no murmur res: clear to auscultation ,no rhonchii or wheezing abd: no rebound or guarding ,nt, bs present. ext pulses present , no cyanosis, mild left leg swellin. neuro: axo3 , nonfocal. assessment and plan coordinated in APCs note, Agree with the plan in addition: possible osteo? : started iv antibiotivs Frequent turning, wound care Will add id evaluation for possible osteo and surgery input for foot wound. Time Spent With Patient Time: Total time managing care of this patient today ____ minutes.
[2022-12-16] MEDS: cefEPime HCl 2 GM in 0.9 % Sodium Chloride 50 ML IV (17:24)
[2022-12-16] MEDS: Heparin Sodium,Porcine 5,000 UNIT/ML VIAL 5000 UNIT SUBCUT (17:24)
[2022-12-16 17:25] LABS: Iron 35 mcg/dL (45-160); Percent Iron Saturation 27 % (15-50); Total Iron Binding Capacity 132 mcg/dL (228-428); Unsaturated Iron Binding 97 ug/dL
[2022-12-16 17:43] LABS: COVID-19 Test Negative (Negative); IDNOW Serial# 16C4AD1C
[2022-12-16 17:52] LABS: Ferritin 548 ng/mL (20-250); Folate 8.1 ng/mL (> or = 4.0); Vitamin B12 317 pg/mL (200-900)
--- NOTE | 2022-12-16 19:20 | PC.NURSE ---
per day shift RN patient had 3 iv lines that infiltrated. cefepime antibiotic still not complete. doxycycline to be administered next. will need to attempt for another iv line . patient has R sided CVA therefore can only access the L arm
--- NOTE | 2022-12-16 20:12 | PC.NURSE ---
Raul THIBODEAUX successfully placed iv line #22g iv. cefepime antibiotic running no issues.
[2022-12-16 20:23] VITALS: BP 162/66; PULSE 79; RESP 16; O2SAT 97
[2022-12-16] MEDS: Doxycycline Hyclate 100 MG in 0.9 % Sodium Chloride 250 ML 166.67 MG IV (20:25)
[2022-12-16] MEDS: ondansetron HCL 4 MG/2 ML VIAL IVPUSH (20:28)
--- NOTE | 2022-12-16 23:30 | PC.NURSE ---
report given to industrial paramedic . patient to go to room 384.
[2022-12-17 03:50] VITALS: BP 158/72; PULSE 66; RESP 18; TEMP 36.5; O2SAT 94
[2022-12-17] MEDS: Doxycycline Hyclate 100 MG in 0.9 % Sodium Chloride 250 ML 166.67 MG IV (06:18)
[2022-12-17] MEDS: Heparin Sodium,Porcine 5,000 UNIT/ML VIAL 5000 UNIT SUBCUT ×2 (06:21→16:51)
[2022-12-17 06:58] LABS: Anion Gap 17 (12-20); Blood Urea Nitrogen 79 mg/dL (9-16); Calcium 8.2 mg/dL (8.4-10.2); Carbon Dioxide 19 mmol/L (22-29); Chloride 108 mmol/L (96-108); Creatinine Clr Calc Pharmacy 11.3; Estimated Glomerular Filt Rate 9; Glucose Random 99 mg/dL (60-115); Potassium 4.9 mmol/L (3.3-5.1); Sodium 139 mmol/L (135-145)
[2022-12-17 07:48] VITALS: BP 157/66; PULSE 68; RESP 20; TEMP 36.8; O2SAT 97
[2022-12-17] MEDS: calcitrioL 0.25 MCG CAPSULE PO (09:24)
[2022-12-17] MEDS: carvediloL 25 MG TABLET PO (09:24)
[2022-12-17] MEDS: amLODIPine Besylate 5 MG TABLET PO (09:24)
[2022-12-17] MEDS: Atorvastatin Calcium 40 MG TABLET PO (09:24)
[2022-12-17] MEDS: cloNIDine HCL 0.1 MG TABLET PO (09:24)
[2022-12-17] MEDS: cefEPime HCl 1 GM in 0.9 % Sodium Chloride 50 ML IV (09:25)
[2022-12-17] MEDS: Finasteride 5 MG TABLET PO (09:25)
--- NOTE | 2022-12-17 11:21 | PM.CNNEP ---
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 Pt accompanied by supplements HPI.? Pt has right-sided hemiparesis s/p CVA 5 1/2 years ago and is essentially bedbound.? states that patient developed a tiny graciela on his foot 2 and half weeks ago that continued to grow and develop quickly.? Patient was unable to see PCP but wound was seen and cared for by [facility]NA. Wound also evaluated by [facility] who prescribed Doxycycline 5 days ago. Left leg swelling began a few days ago.? Wound continued to grow and swelling increased until PCP called and pt told to go to ED for evaluation. Patient's only other complaint is an occasional dry chronic cough. Pt denies pain in the foot or leg. No fever, chills, nausea, vomiting. No abdominal pain.? No headache, vision changes.? No chest pain/pressure, palpitations.? Denies shortness of breath. ? Has CKD and sees ? Review of Systems Review of Systems Patient's only other complaint is an occasional dry chronic cough. Pt denies pain in the foot or leg. No fever, chills, nausea, vomiting. No abdominal pain.? No headache, vision changes.? No chest pain/pressure, palpitations.? Denies shortness of breath PMF Past Medical History Medical History CVA (cerebral vascular accident) Social History Social History Household Members: Unknown / Unable to assess Housing: House Do you presently have visiting nurse or other home services: Yes Alcohol intake: never Patient Tobacco Use Status: Never used Tobacco service: No Current occupational status: retired Meds Allergies Allergy/AdvReac Type Severity Reaction Status Date / Time metformin [METFORMIN] Allergy Intermediate RASH Unverified 07/23/20 16:03 Active Medications: Current Medications Acetaminophen (Acetaminophen 325 Mg Tablet) 650 mg PO Q6H PRN PRN Reason: Pain, Mild (Pain Scale 1-3) Amlodipine Besylate (Amlodipine Besylate 5 Mg Tablet) 5 mg PO DAILY [facility]; Protocol Last Admin: 12/17/22 09:24 Dose: 5 mg Atorvastatin Calcium (Atorvastatin Calcium 40 Mg Tablet) 40 mg PO DAILY [facility] Last Admin: 12/17/22 09:24 Dose: 40 mg Calcitriol (Calcitriol 0.25 Mcg Capsule) 0.25 mcg PO DAILY [facility] Last Admin: 12/17/22 09:24 Dose: 0.25 mcg Carvedilol (Carvedilol 25 Mg Tablet) 25 mg PO DAILY [facility]; Protocol Last Admin: 12/17/22 09:24 Dose: 25 mg Clonidine HCl (Clonidine Hcl 0.1 Mg Tablet) 0.1 mg PO DAILY [facility]; Protocol Last Admin: 12/17/22 09:24 Dose: 0.1 mg Docusate Sodium (Docusate Sodium 100 Mg Capsule) 100 mg PO DAILY PRN PRN Reason: Constipation Finasteride (Finasteride 5 Mg Tablet) 5 mg PO DAILY [facility] Last Admin: 12/17/22 09:25 Dose: 5 mg Heparin Sodium (Porcine) (Heparin Sodium,Porcine 5,000 Unit/Ml Vial) 5,000 unit SUBCUT Q12H [facility] Last Admin: 12/17/22 06:21 Dose: 5,000 unit Cefepime HCl 1 gm/ Sodium (Chloride) 50 mls @ 100 mls/hr IV Q24H [facility] Last Infusion: 12/17/22 10:45 Dose: Infused Doxycycline Hyclate 100 mg/ (Sodium Chloride) 250 mls @ 166.67 mls/hr IV Q12H [facility] Last Infusion: 12/17/22 08:30 Dose: Infused Ondansetron HCl (Ondansetron Hcl 4 Mg/2 Ml Vial) 4 mg IVPUSH Q8H PRN PRN Reason: Nausea and Vomiting Last Admin: 12/16/22 20:28 Dose: 4 mg Pharmacy Consult (Consult Rx Perform Med Rec) 1 each MISCELLANE ONCE PRN PRN Reason: Consult order Home Medications Medication Instructions Recorded Confirmed Last Taken Type amlodipine 5 mg tablet 1 tab PO DAILY 12/16/22 12/16/22 12/16/22 History atorvastatin 40 mg tablet 1 tab PO DAILY 12/16/22 12/16/22 12/16/22 History calcitriol 0.25 mcg capsule 1 cap PO DAILY 12/16/22 12/16/22 12/16/22 History carvedilol 25 mg tablet 1 tab PO DAILY 12/16/22 12/16/22 12/16/22 History clonidine HCl 0.1 mg tablet 1 tab PO DAILY 12/16/22 12/16/22 12/16/22 History doxycycline hyclate 100 mg capsule 1 cap PO BID 12/16/22 12/16/22 12/16/22 History finasteride 5 mg tablet 1 tab PO DAILY 12/16/22 12/16/22 12/16/22 History Physical Exam Vital Signs: Last Vital Signs Temp 98.3 F 12/17/22 07:48 Pulse 68 12/17/22 07:48 Resp 20 12/17/22 07:48 BP 157/66 H 12/17/22 07:48 Pulse Ox 97 12/17/22 07:48 O2 Del Method 12/17/22 07:48 BMI result Body Mass Index 28.0 Constitutional:?Alert, in no acute distress. Mental Status:?Oriented to person, place and time. Eyes:?Pupils are equal, round, and reactive to light. Ear, Nose, and Throat:?Oropharynx clear, mucous membranes moist. Ears and nose without deformities. Trachea midline. Respiratory:?Clear to auscultation bilaterally. No wheezing, rales, or rhonchi. Cardiovascular:?S1, S2 regular. No murmurs, rubs, or gallops. Gastrointestinal:?Abdomen soft, non-tender, non-distended. Normal bowel sounds. Neurologic:?Pt with right-sided paralysis. Musculoskeletal:?Right arm and hand contracted. Extremities:?Open wound on left heel, as pictured below. Lower left leg swelling and warmth, as below. Psychiatric:?Normal mood and affect. Results Lab Results 12/16/22 11:31 12/17/22 05:41 Lab results: Chemistry 12/16/22 12/17/22 11:31 05:41 Sodium 136 139 Potassium 5.1 4.9 Carbon Dioxide 22 19 L BUN 79 H 79 H Creatinine 6.02 H* 6.03 H* Calcium 8.5 8.2 L Hematology 12/16/22 11:31 WBC 8.9 Hgb 8.7 L Plt Count 344 D Assessment and Plan (1) CKD (chronic kidney disease): Status: Acute Plan Elderly man with CKD and superimposed [place] most likely due to tubular injury No obstruction No s/s of uremia or fluid over load Non oliguric Anemia Foot ulcer Suggest Keep I >> O Avoid hypotension and nephrotoxins Monitor I /O s No indication for dialysis Follow renal panel Time Spent With Patient Time: Total time managing care of this patient today ____ minutes. Procedures Date of Service Date of Service: 12/17/22
--- NOTE | 2022-12-17 13:16 | P.CONGS_ITS ---
History of Present Illness Consult details Consult date: 12/17/22 Requesting physician: Tian Real Narrative: We are being consulted for left heel wound with osteomyelitis. 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 there is exposed bone. the xray is suspicious for osteomyelitis. [facility] Past Medical History Medical History (Updated 12/17/22 @ 13:56 by Tian Real MD) CVA (cerebral vascular accident) Social History Social History Household Members: Unknown / Unable to assess Housing: House Do you presently have visiting nurse or other home services: Yes Alcohol intake: never Patient Tobacco Use Status: Never used Tobacco Smoked in Last 30 Days: No Use of substances other than those prescribed or required for medical reasons: No Currently Displaying Signs/Symptoms of Drug Intoxication Withdrawal: No Have you been hit, kicked, punched, or otherwise hurt by someone within the past year? If so, by whom?: No Do you feel safe in your current relationship?: Yes Is there a partner from a previous relationship who is making you feel unsafe now?: No Are you made to feel afraid or neglected: No Advance Directives: No Advance Directives Information Provided: Yes Do you have thoughts of harming others: None Do you have a plan to hurt others: No Plan Recently lost weight without trying: No How much weight loss: Not applicable Eating poorly because of decreased appetite: No Nutrition screen score: 0 Nutrition Risks: No Nutritional Risk Poor oral hygiene: No service: No Current occupational status: retired Meds Allergies Allergy/AdvReac Type Severity Reaction Status Date / Time metformin [METFORMIN] Allergy Intermediate RASH Unverified 07/23/20 16:03 Active Medications: Current Medications Acetaminophen (Acetaminophen 325 Mg Tablet) 650 mg PO Q6H PRN PRN Reason: Pain, Mild (Pain Scale 1-3) Amlodipine Besylate (Amlodipine Besylate 5 Mg Tablet) 5 mg PO DAILY [facility]; Protocol Last Admin: 12/17/22 09:24 Dose: 5 mg Atorvastatin Calcium (Atorvastatin Calcium 40 Mg Tablet) 40 mg PO DAILY [facility] Last Admin: 12/17/22 09:24 Dose: 40 mg Calcitriol (Calcitriol 0.25 Mcg Capsule) 0.25 mcg PO DAILY [facility] Last Admin: 12/17/22 09:24 Dose: 0.25 mcg Carvedilol (Carvedilol 25 Mg Tablet) 25 mg PO DAILY [facility]; Protocol Last Admin: 12/17/22 09:24 Dose: 25 mg Clonidine HCl (Clonidine Hcl 0.1 Mg Tablet) 0.1 mg PO DAILY [facility]; Protocol Last Admin: 12/17/22 09:24 Dose: 0.1 mg Docusate Sodium (Docusate Sodium 100 Mg Capsule) 100 mg PO DAILY PRN PRN Reason: Constipation Finasteride (Finasteride 5 Mg Tablet) 5 mg PO DAILY [facility] Last Admin: 12/17/22 09:25 Dose: 5 mg Heparin Sodium (Porcine) (Heparin Sodium,Porcine 5,000 Unit/Ml Vial) 5,000 unit SUBCUT Q12H [facility] Last Admin: 12/17/22 06:21 Dose: 5,000 unit Cefepime HCl 1 gm/ Sodium (Chloride) 50 mls @ 100 mls/hr IV Q24H [facility] Last Infusion: 12/17/22 10:45 Dose: Infused Doxycycline Hyclate 100 mg/ (Sodium Chloride) 250 mls @ 166.67 mls/hr IV Q12H [facility] Last Infusion: 12/17/22 08:30 Dose: Infused Ondansetron HCl (Ondansetron Hcl 4 Mg/2 Ml Vial) 4 mg IVPUSH Q8H PRN PRN Reason: Nausea and Vomiting Last Admin: 12/16/22 20:28 Dose: 4 mg Pharmacy Consult (Consult Rx Perform Med Rec) 1 each MISCELLANE ONCE PRN PRN Reason: Consult order Home Medications Medication Instructions Recorded Confirmed Last Taken Type amlodipine 5 mg tablet 1 tab PO DAILY 12/16/22 12/16/22 12/16/22 History atorvastatin 40 mg tablet 1 tab PO DAILY 12/16/22 12/16/22 12/16/22 History calcitriol 0.25 mcg capsule 1 cap PO DAILY 12/16/22 12/16/22 12/16/22 History carvedilol 25 mg tablet 1 tab PO DAILY 12/16/22 12/16/22 12/16/22 History clonidine HCl 0.1 mg tablet 1 tab PO DAILY 12/16/22 12/16/22 12/16/22 History doxycycline hyclate 100 mg capsule 1 cap PO BID 12/16/22 12/16/22 12/16/22 History finasteride 5 mg tablet 1 tab PO DAILY 12/16/22 12/16/22 12/16/22 History Physical Exam Vital Signs: Vital Signs: Last Vital Signs Temp 98.3 F 12/17/22 07:48 Pulse 68 12/17/22 07:48 Resp 20 12/17/22 07:48 BP 157/66 H 12/17/22 07:48 Pulse Ox 97 12/17/22 07:48 O2 Del Method 12/17/22 07:48 BMI result Body Mass Index 28.0 Skin: Other: pt not able to move right hand and leg but can left side. left arm better than leg left post heel has quarter size wound with necrotic tissue and deep at base there is bone exposed. little tender to palpation surrounding skin ok Results Labs 12/16/22 11:31 12/17/22 05:41 Labs: Abnormal lab results 12/16/22 12/17/22 Range/Units 11:31 05:41 Carbon Dioxide 19 L (22-29) mmol/L BUN 79 H (9-16) mg/dL Creatinine 6.03 H* (0.5-1.4) mg/dL Calcium 8.2 L (8.4-10.2) mg/dL Iron 35 L (45-160) mcg/dL TIBC 132 L (228-428) mcg/dL Ferritin 548 H (20-250) ng/mL BMP 12/17/22 05:41 Sodium 139 Potassium 4.9 Chloride 108 Carbon Dioxide 19 L BUN 79 H Creatinine 6.03 H* Calcium 8.2 L All other labs normal. Imaging Additional studies: foot xray showing bone erosion consistent with osteo in this area Assessment and Plan (1) Osteomyelitis: Status: Acute Plan 77 year old male with diabetes and paralysis right side from stroke with left heel wound with osteo and exposed bone - bedside debridement and culture and iv antibx as per ID to treat this osteo. then consider wound care with VNA and outpt wound care clinic visits silver alginate, barrier zinc oxide cream, and wrap foot to keep edema down need to offload and elevate off bed Time Spent With Patient Time: Total time managing care of this patient today ____ minutes. Procedures Date of Service Date of Service: 12/17/22
--- NOTE | 2022-12-17 13:22 | MHC.CM.PN ---
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 PT VERIFIES COVID VACC X2, HCP IS PT'S [facility]AT[facility] [phone] AND PT REPORTS HIS PCP RETIRED AND GAVE CM PERMISSION TO CONFIRM NEW PCP, [facility]O CONTACTED AT 1:20PM, AND REPORTS PT'S NEW PCP IS AKIRA OLIVIA. [facility] PT WILL D/C HOME W/RESUMP OF [facility] AND NEW VNA, REFERRAL PLACED TO [facility] IN [facility], FAMILY WILL TRANSPORT.
--- NOTE | 2022-12-17 13:45 | HO.PM.IMPN ---
Subjective Subjective Date of Service: 12/17/22 Interval History: left foot osteo. Review of Systems has some soarness foot no fevers or chills Physical Exam Vital Signs: Vital Signs: Last Vital Signs Temp 98.3 F 12/17/22 07:48 Pulse 68 12/17/22 07:48 Resp 20 12/17/22 07:48 BP 157/66 H 12/17/22 07:48 Pulse Ox 97 12/17/22 07:48 O2 Del Method 12/17/22 07:48 BMI result Body Mass Index 28.0 Appearance: Alert.? Oriented X3.? not in distress.?. cvs: rrr, [id number] , no murmur res: clear to auscultation ,no rhonchii or wheezing abd: no rebound or guarding ,nt, bs present. ext .Open wound on left heel, as pictured below. Lower left leg swelling and warmth,?please see pic h&p note. neuro: axo3 , nonfocal. Objective Data Active Medications Acetaminophen (Acetaminophen 325 Mg Tablet) 650 mg PO Q6H PRN PRN Reason: Pain, Mild (Pain Scale 1-3) Amlodipine Besylate (Amlodipine Besylate 5 Mg Tablet) 5 mg PO DAILY [facility]; Protocol Last Admin: 12/17/22 09:24 Dose: 5 mg Documented By: SARAH Atorvastatin Calcium (Atorvastatin Calcium 40 Mg Tablet) 40 mg PO DAILY [facility] Last Admin: 12/17/22 09:24 Dose: 40 mg Documented By: SARAH Calcitriol (Calcitriol 0.25 Mcg Capsule) 0.25 mcg PO DAILY [facility] Last Admin: 12/17/22 09:24 Dose: 0.25 mcg Documented By: SARAH Carvedilol (Carvedilol 25 Mg Tablet) 25 mg PO DAILY [facility]; Protocol Last Admin: 12/17/22 09:24 Dose: 25 mg Documented By: SARAH Clonidine HCl (Clonidine Hcl 0.1 Mg Tablet) 0.1 mg PO DAILY [facility]; Protocol Last Admin: 12/17/22 09:24 Dose: 0.1 mg Documented By: SARAH Docusate Sodium (Docusate Sodium 100 Mg Capsule) 100 mg PO DAILY PRN PRN Reason: Constipation Finasteride (Finasteride 5 Mg Tablet) 5 mg PO DAILY [facility] Last Admin: 12/17/22 09:25 Dose: 5 mg Documented By: SARAH Heparin Sodium (Porcine) (Heparin Sodium,Porcine 5,000 Unit/Ml Vial) 5,000 unit SUBCUT Q12H [facility] Last Admin: 12/17/22 06:21 Dose: 5,000 unit Documented By: FANNY Cefepime HCl 1 gm/ Sodium (Chloride) 50 mls @ 100 mls/hr IV Q24H [facility] Last Infusion: 12/17/22 10:45 Dose: 100 mls/hr Documented By: SARAH Doxycycline Hyclate 100 mg/ (Sodium Chloride) 250 mls @ 166.67 mls/hr IV Q12H [facility] Last Infusion: 12/17/22 08:30 Dose: 166.66 mls/hr Documented By: SARAH Ondansetron HCl (Ondansetron Hcl 4 Mg/2 Ml Vial) 4 mg IVPUSH Q8H PRN PRN Reason: Nausea and Vomiting Last Admin: 12/16/22 20:28 Dose: 4 mg Documented By: JOSE Pharmacy Consult (Consult Rx Perform Med Rec) 1 each MISCELLANE ONCE PRN PRN Reason: Consult order Labs 12/16/22 11:31 12/17/22 05:41 Labs: Laboratory Results - last 24 hr 12/16/22 12/16/22 12/16/22 11:31 14:31 17:20 Anion Gap Estim Creat Clear Calc Estimated GFR Random Glucose Lactic Acid 0.7 Calcium Iron 35 L TIBC 132 L % Saturation 27 Unsat Iron Binding 97 Ferritin 548 H Vitamin B12 317 Folate 8.1 COVID-19 ([facility]) Negative COVID-19 Clin Com See Note 12/17/22 05:41 Anion Gap 17 Estim Creat Clear Calc 11.3 Estimated GFR 9 Random Glucose 99 Lactic Acid Calcium 8.2 L Iron TIBC % Saturation Unsat Iron Binding Ferritin Vitamin B12 Folate COVID-19 ([facility]) COVID-19 Clin Com Assessment and Plan (1) CKD (chronic kidney disease): Status: Acute (2) Wound of left foot: Status: Acute (3) Osteomyelitis: Status: Acute Plan 77-year-old male with a PMH significant for?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 Pt will be admitted to the hospital for treatment and further evaluation left heel wound concerning for osteomyelitis. Left heel wound concerning for acute osteomyelitis X-ray of left foot shows soft tissue defect over the posterior aspect of the calcaneus with subtle erosion of the underlying bone, concerning for osteomyelitis ct foot-acute osteo. Elevated CRP and ESR, no leukocytosis or fever Patient does not meet sepsis criteria IV abx: Doxycycline and cefepime Keep foot elevated off bed. ID consult,General surgery consult CKD stage 5 Patient's creatinine 6.02 similar , last measured at [facility] on 12/02/2022 at 5.7 with BUN 67 Pt received 1L IVF in ED Follow labs Nephrology consult-urinating sofar ,Keep? I > O,Avoid hypotension and nephrotoxins Anemia,normocytic chronic Patient's H&H of 8.7/26.3, slightly lower than baseline No obvious source of bleeding, pt denies hematemesis, hematochezia, melena Iron studies, B12, folate-noted ? acod Hx of CVA with right-sided hemiparesis Pt seems stable, at baseline Pt eats regular diet with thin liquids at home Pt positioning q2hrs HLD Continue home meds HTN Continue home meds inpatient need:concerning for osteomyelitis-contnue iv antibiotics , might need surgery intervenation. Time Spent With Patient Time: Total time managing care of this patient today ____ minutes. Quality Stroke Does the patient have a stroke diagnosis?: No VTE Prior VTE?: No VTE Risk Level:: Medical - moderate - high VTE Device Contraindication: Treatment Not Indicated VTE Drug Contraindication: N/A - Med Ordered
--- NOTE | 2022-12-17 13:56 | MHC.CM.PN ---
PT W/LEFT FOOT ULCER AND OSTEOMYELITIS, REFERRALS PLACED TO [facility].
[2022-12-17 16:00] VITALS: BP 141/65; PULSE 66; RESP 18; TEMP 36.6; O2SAT 97
[2022-12-17] MEDS: Ferrous Sulfate 324 MG TABLET.DR PO (16:50)
[2022-12-17] MEDS: Doxycycline Hyclate 100 MG in 0.9 % Sodium Chloride 250 ML 166.66 MG IV (16:51)
--- NOTE | 2022-12-17 18:32 | PC.NURSE ---
Pt alert and oriented x4. Denies pain or discomfort. Assumed pt care at 1500. Pt continues on IV ABT therapy for Osteo to the heel.
[2022-12-17 20:00] VITALS: BP 166/76; PULSE 67; RESP 19; TEMP 36.6; O2SAT 97
--- NOTE | 2022-12-17 23:16 | P.CNID_ITS ---
History of Present Illness Data of Consult Service Date: 12/17/22 Requesting physician: Tian Real Primary Care Provider: Jeancarlos Serna MD [facility] Reason for consult: left heel ulcer He presents with worsening left heel ulcer. He has had this over last two weeks at least two weeks ,now worsening. His cultures are pending He has renal insufficiency. Review of Systems Review of Systems: Yes all other systems are reviewed and are negative PMFSH Past Medical History Medical History CVA (cerebral vascular accident) Family History Family history: reviewed and not pertinent Social History Social History Household Members: Unknown / Unable to assess Housing: House Do you presently have visiting nurse or other home services: Yes Alcohol intake: never Patient Tobacco Use Status: Never used Tobacco Smoked in Last 30 Days: No Use of substances other than those prescribed or required for medical reasons: No Currently Displaying Signs/Symptoms of Drug Intoxication Withdrawal: No Have you been hit, kicked, punched, or otherwise hurt by someone within the past year? If so, by whom?: No Do you feel safe in your current relationship?: Yes Is there a partner from a previous relationship who is making you feel unsafe now?: No Are you made to feel afraid or neglected: No Advance Directives: No Advance Directives Information Provided: Yes Do you have thoughts of harming others: None Do you have a plan to hurt others: No Plan Recently lost weight without trying: No How much weight loss: Not applicable Eating poorly because of decreased appetite: No Nutrition screen score: 0 Nutrition Risks: No Nutritional Risk Poor oral hygiene: No service: No Current occupational status: retired Meds Allergies Allergy/AdvReac Type Severity Reaction Status Date / Time metformin [METFORMIN] Allergy Intermediate RASH Unverified 07/23/20 16:03 Active Medications: Current Medications Acetaminophen (Acetaminophen 325 Mg Tablet) 650 mg PO Q6H PRN PRN Reason: Pain, Mild (Pain Scale 1-3) Amlodipine Besylate (Amlodipine Besylate 5 Mg Tablet) 5 mg PO DAILY [facility]; Protocol Last Admin: 12/17/22 09:24 Dose: 5 mg Atorvastatin Calcium (Atorvastatin Calcium 40 Mg Tablet) 40 mg PO DAILY [facility] Last Admin: 12/17/22 09:24 Dose: 40 mg Calcitriol (Calcitriol 0.25 Mcg Capsule) 0.25 mcg PO DAILY [facility] Last Admin: 12/17/22 09:24 Dose: 0.25 mcg Carvedilol (Carvedilol 25 Mg Tablet) 25 mg PO DAILY [facility]; Protocol Last Admin: 12/17/22 09:24 Dose: 25 mg Clonidine HCl (Clonidine Hcl 0.1 Mg Tablet) 0.1 mg PO DAILY [facility]; Protocol Last Admin: 12/17/22 09:24 Dose: 0.1 mg Docusate Sodium (Docusate Sodium 100 Mg Capsule) 100 mg PO DAILY PRN PRN Reason: Constipation Ferrous Sulfate (Ferrous Sulfate 324 Mg Tablet.Dr) 324 mg PO BIDWM [facility] Last Admin: 12/17/22 16:50 Dose: 324 mg Finasteride (Finasteride 5 Mg Tablet) 5 mg PO DAILY [facility] Last Admin: 12/17/22 09:25 Dose: 5 mg Heparin Sodium (Porcine) (Heparin Sodium,Porcine 5,000 Unit/Ml Vial) 5,000 unit SUBCUT Q12H [facility] Last Admin: 12/17/22 16:51 Dose: 5,000 unit Cefepime HCl 1 gm/ Sodium (Chloride) 50 mls @ 100 mls/hr IV Q24H [facility] Last Infusion: 12/17/22 10:45 Dose: Infused Doxycycline Hyclate 100 mg/ (Sodium Chloride) 250 mls @ 166.67 mls/hr IV Q12H [facility] Last Infusion: 12/17/22 18:30 Dose: Infused Ondansetron HCl (Ondansetron Hcl 4 Mg/2 Ml Vial) 4 mg IVPUSH Q8H PRN PRN Reason: Nausea and Vomiting Last Admin: 12/16/22 20:28 Dose: 4 mg Pharmacy Consult (Consult Rx Perform Med Rec) 1 each MISCELLANE ONCE PRN PRN Reason: Consult order Home Medications Medication Instructions Recorded Confirmed Last Taken Type amlodipine 5 mg tablet 1 tab PO DAILY 12/16/22 12/16/22 12/16/22 History atorvastatin 40 mg tablet 1 tab PO DAILY 12/16/22 12/16/22 12/16/22 History calcitriol 0.25 mcg capsule 1 cap PO DAILY 12/16/22 12/16/22 12/16/22 History carvedilol 25 mg tablet 1 tab PO DAILY 12/16/22 12/16/22 12/16/22 History clonidine HCl 0.1 mg tablet 1 tab PO DAILY 12/16/22 12/16/22 12/16/22 History doxycycline hyclate 100 mg capsule 1 cap PO BID 12/16/22 12/16/22 12/16/22 History finasteride 5 mg tablet 1 tab PO DAILY 12/16/22 12/16/22 12/16/22 History Physical Exam Vital Signs: Vital Signs: Last Vital Signs Temp 97.8 F 12/17/22 20:00 Pulse 67 12/17/22 20:00 Resp 19 12/17/22 20:00 BP 166/76 H 12/17/22 20:00 Pulse Ox 97 12/17/22 20:00 O2 Del Method 12/17/22 20:00 BMI result Body Mass Index 28.0 Const: General: cooperative HEENT: Head: Yes normal to inspection Face and sinus: Yes normal facial exam Mouth: Normal oral and palatal mucosa present Teeth and gingiva: dentition normal Eyes: General: appearance normal, both eyes and all related structures Pupils: Equal, round and reactive pupils present Resp: Effort & Inspection: normal respiratory effort Cardio: Rate: regular rate Rhythm: regular rhythm GI: Palpation (GI): Soft to palpation and nontender : General: Yes no CVA tenderness Back/Spine/Pelvis: Back: no CVA tenderness Skin: General skin exam: no rashes or lesions noted Neuro: General: moves all extremities Cranial nerves: Yes Equal, round and reactive pupils present Extrem: Other: left foot ulcer open to bone Psych: Appearance: grossly normal Results Labs 12/16/22 11:31 12/17/22 05:41 Labs: BMP 12/17/22 05:41 Sodium 139 Potassium 4.9 Chloride 108 Carbon Dioxide 19 L BUN 79 H Creatinine 6.03 H* Calcium 8.2 L Microbiology Microbiology Results: Microbiology 12/16/22 14:43 Blood - Venous Blood Culture - Preliminary No growth after 24 hours. 12/16/22 14:43 Blood - Venous Blood Culture - Preliminary No growth after 24 hours. Assessment and Plan (1) Osteomyelitis: Status: Acute He has left 2.4 cm cortical erosion and periosteal reaction consistent with osteomyelitis. He has unknown organisms at this time (2) CKD (chronic kidney disease): Status: Acute Plan Would continue Cefepime and Doxycycline for now. Await blood cultures. If unremarkable cultures IV Ertapenem .5 g post dialysis for six weeks. Time Spent With Patient Time: Total time managing care of this patient today ____ minutes.
[2022-12-18 04:00] VITALS: BP 156/69; PULSE 57; RESP 20; TEMP 36.3; O2SAT 95
[2022-12-18] MEDS: Doxycycline Hyclate 100 MG in 0.9 % Sodium Chloride 250 ML 166.67 MG IV ×2 (05:54→17:18)
[2022-12-18] MEDS: Heparin Sodium,Porcine 5,000 UNIT/ML VIAL 5000 UNIT SUBCUT ×2 (05:54→17:17)
[2022-12-18 07:47] VITALS: BP 161/74; PULSE 64; RESP 20; TEMP 36.2; O2SAT 95
[2022-12-18 08:06] LABS: Anion Gap 15 (12-20); Blood Urea Nitrogen 77 mg/dL (9-16); Calcium 8.3 mg/dL (8.4-10.2); Carbon Dioxide 19 mmol/L (22-29); Chloride 110 mmol/L (96-108); Creatinine Clr Calc Pharmacy 11.5; Estimated Glomerular Filt Rate 9; Glucose Random 106 mg/dL (60-115); Potassium 4.9 mmol/L (3.3-5.1); Sodium 139 mmol/L (135-145)
[2022-12-18] MEDS: amLODIPine Besylate 5 MG TABLET PO (09:32)
[2022-12-18] MEDS: cloNIDine HCL 0.1 MG TABLET PO (09:32)
--- NOTE | 2022-12-18 09:32 | HO.PM.IMPN ---
Subjective Subjective Date of Service: 12/18/22 Interval History: left foot osteo. Review of Systems has some soarness? foot no fevers or chills Physical Exam Vital Signs: Vital Signs: Last Vital Signs Temp 97.2 F 12/18/22 07:47 Pulse 64 12/18/22 07:47 Resp 20 12/18/22 07:47 BP 161/74 H 12/18/22 07:47 Pulse Ox 95 12/18/22 07:47 O2 Del Method 12/18/22 07:47 BMI result Body Mass Index 28.0 Appearance: Alert.? Oriented X3.? not in distress.?. cvs: rrr, [id number] , no murmur res: clear to auscultation ,no rhonchii or wheezing abd: no rebound or guarding ,nt, bs present. ext .Open wound on left heel, as pictured below. Lower left leg swelling and warmth,?please see pic h&p note. neuro: axo3 , nonfocal. Objective Data Active Medications Acetaminophen (Acetaminophen 325 Mg Tablet) 650 mg PO Q6H PRN PRN Reason: Pain, Mild (Pain Scale 1-3) Amlodipine Besylate (Amlodipine Besylate 5 Mg Tablet) 5 mg PO DAILY [facility]; Protocol Last Admin: 12/17/22 09:24 Dose: 5 mg Documented By: SARAH Atorvastatin Calcium (Atorvastatin Calcium 40 Mg Tablet) 40 mg PO DAILY [facility] Last Admin: 12/17/22 09:24 Dose: 40 mg Documented By: SARAH Calcitriol (Calcitriol 0.25 Mcg Capsule) 0.25 mcg PO DAILY [facility] Last Admin: 12/17/22 09:24 Dose: 0.25 mcg Documented By: SARAH Carvedilol (Carvedilol 25 Mg Tablet) 25 mg PO DAILY [facility]; Protocol Last Admin: 12/17/22 09:24 Dose: 25 mg Documented By: SARAH Clonidine HCl (Clonidine Hcl 0.1 Mg Tablet) 0.1 mg PO DAILY [facility]; Protocol Last Admin: 12/17/22 09:24 Dose: 0.1 mg Documented By: SARAH Docusate Sodium (Docusate Sodium 100 Mg Capsule) 100 mg PO DAILY PRN PRN Reason: Constipation Ferrous Sulfate (Ferrous Sulfate 324 Mg Tablet.) 324 mg PO BIDWM [facility] Last Admin: 12/17/22 16:50 Dose: 324 mg Documented By: FORREST Finasteride (Finasteride 5 Mg Tablet) 5 mg PO DAILY [facility] Last Admin: 12/17/22 09:25 Dose: 5 mg Documented By: SARAH Heparin Sodium (Porcine) (Heparin Sodium,Porcine 5,000 Unit/Ml Vial) 5,000 unit SUBCUT Q12H [facility] Last Admin: 12/18/22 05:54 Dose: 5,000 unit Documented By: HO Cefepime HCl 1 gm/ Sodium (Chloride) 50 mls @ 100 mls/hr IV Q24H [facility] Last Infusion: 12/17/22 10:45 Dose: 100 mls/hr Documented By: SARAH Doxycycline Hyclate 100 mg/ (Sodium Chloride) 250 mls @ 166.67 mls/hr IV Q12H [facility] Last Infusion: 12/18/22 07:24 Dose: 166.67 mls/hr Documented By: SARAH Ondansetron HCl (Ondansetron Hcl 4 Mg/2 Ml Vial) 4 mg IVPUSH Q8H PRN PRN Reason: Nausea and Vomiting Last Admin: 12/16/22 20:28 Dose: 4 mg Documented By: JOSE Pharmacy Consult (Consult Rx Perform Med Rec) 1 each MISCELLANE ONCE PRN PRN Reason: Consult order Labs 12/16/22 11:31 12/18/22 07:32 Labs: Laboratory Results - last 24 hr 12/18/22 07:32 Anion Gap 15 Estim Creat Clear Calc 11.5 Estimated GFR 9 Random Glucose 106 Calcium 8.3 L Microbiology Microbiology Results: Microbiology 12/16/22 14:43 Blood Culture - Preliminary Blood - Venous No growth after 24 hours. 12/16/22 14:43 Blood Culture - Preliminary Blood - Venous No growth after 24 hours. 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 Pt will be admitted to the hospital for treatment and further evaluation left heel wound concerning for osteomyelitis. Left heel wound concerning for acute osteomyelitis X-ray of left foot shows soft tissue defect over the posterior aspect of the calcaneus with subtle erosion of the underlying bone, concerning for osteomyelitis ct foot-acute osteo. Elevated CRP and ESR, no leukocytosis or fever Patient does not meet sepsis criteria IV abx: Doxycycline and cefepime Keep foot elevated off bed. ID consult,General surgery consult CKD stage 5 Patient's creatinine 6.02 similar , last measured at [facility] on 12/02/2022 at 5.7 with BUN 67 Pt received 1L IVF in ED Follow labs Nephrology consult-urinating sofar ,Keep? I > O,Avoid hypotension and nephrotoxins Anemia,normocytic chronic Patient's H&H of 8.7/26.3, slightly lower than baseline No obvious source of bleeding, pt denies hematemesis, hematochezia, melena Iron studies, B12, folate-noted ? acod Hx of CVA with right-sided hemiparesis Pt seems stable, at baseline Pt eats regular diet with thin liquids at home Pt positioning q2hrs HLD Continue home meds HTN Continue home meds inpatient need:concerning for osteomyelitis-contnue iv antibiotics , might need surgery intervenation. Time Spent With Patient Time: Total time managing care of this patient today ____ minutes. Quality Stroke Does the patient have a stroke diagnosis?: No VTE Prior VTE?: No VTE Risk Level:: Medical - moderate - high VTE Device Contraindication: Treatment Not Indicated VTE Drug Contraindication: N/A - Med Ordered
[2022-12-18] MEDS: Finasteride 5 MG TABLET PO (09:33)
[2022-12-18] MEDS: carvediloL 25 MG TABLET PO (09:33)
[2022-12-18] MEDS: Ferrous Sulfate 324 MG TABLET.DR PO ×2 (09:33→17:17)
[2022-12-18] MEDS: cefEPime HCl 1 GM in 0.9 % Sodium Chloride 50 ML IV (09:33)
[2022-12-18] MEDS: Atorvastatin Calcium 40 MG TABLET PO (09:33)
[2022-12-18] MEDS: calcitrioL 0.25 MCG CAPSULE PO (09:33)
[2022-12-18 16:00] VITALS: BP 153/80; PULSE 61; RESP 20; TEMP 36.8; O2SAT 97
[2022-12-18 20:00] VITALS: BP 160/76; PULSE 65; RESP 20; TEMP 36.5; O2SAT 95
[2022-12-19 03:31] VITALS: BP 166/78; PULSE 60; RESP 18; TEMP 36.4; O2SAT 96
[2022-12-19] MEDS: Doxycycline Hyclate 100 MG in 0.9 % Sodium Chloride 250 ML 166.67 MG IV ×2 (05:05→17:24)
[2022-12-19] MEDS: Heparin Sodium,Porcine 5,000 UNIT/ML VIAL 5000 UNIT SUBCUT (05:07)
[2022-12-19 07:48] VITALS: BP 153/66; PULSE 72; RESP 17; TEMP 36.9; O2SAT 98
[2022-12-19] MEDS: cloNIDine HCL 0.1 MG TABLET PO (08:22)
[2022-12-19] MEDS: Atorvastatin Calcium 40 MG TABLET PO (08:22)
[2022-12-19] MEDS: amLODIPine Besylate 5 MG TABLET PO (08:22)
[2022-12-19] MEDS: calcitrioL 0.25 MCG CAPSULE PO (08:22)
[2022-12-19] MEDS: Ferrous Sulfate 324 MG TABLET.DR PO ×2 (08:22→17:16)
[2022-12-19] MEDS: carvediloL 25 MG TABLET PO (08:23)
[2022-12-19] MEDS: cefEPime HCl 1 GM in 0.9 % Sodium Chloride 50 ML IV (08:23)
[2022-12-19] MEDS: Finasteride 5 MG TABLET PO (08:24)
--- NOTE | 2022-12-19 11:39 | P.PNNP_ITS ---
Subjective Subjective Date of Service: 12/19/22 Interval history: seen and examined discussed with medical attending no complaints Physical Exam Vital Signs: Vital Signs: Last Vital Signs Temp 98.4 F 12/19/22 07:48 Pulse 72 12/19/22 07:48 Resp 17 12/19/22 07:48 BP 153/66 H 12/19/22 07:48 Pulse Ox 98 12/19/22 07:48 O2 Del Method 12/19/22 07:48 BMI result Body Mass Index 28.0 Const: General: no acute distress HEENT: Head: Yes normocephalic and Yes atraumatic Neck: Neck: Yes supple Resp: Auscultation: diminished lung sounds Cardio: Heart sounds: S1 normal heart sound present and S2 normal heart sound present GI: Palpation (GI): Soft to palpation and nontender Extrem: General: Yes edema Objective Data Labs 12/16/22 11:31 12/18/22 07:32 Microbiology Microbiology Results: Microbiology 12/16/22 14:43 Blood - Venous Blood Culture - Preliminary No growth after 48 hours. 12/16/22 14:43 Blood - Venous Blood Culture - Preliminary No growth after 48 hours. Procedures Date of Service Date of Service: 12/19/22 Assessment & Plan Assessment and plan (1) CKD (chronic kidney disease) stage 5, GFR less than 15 ml/min: Status: Acute (2) Diabetic foot infection: Status: Acute Plan advanced CKD due to DM/HTN baseline Scr ~ 5 mg/dl admitted with diabetic foot infection REC avoid PICC line Collins catheter no IVF no indication for [employer] follow kidney function and electrolytes Time Spent With Patient Time: Total time managing care of this patient today ____ minutes. Progress Note: Quality Stroke Does the patient have a stroke diagnosis?: No
[2022-12-19 11:59] LABS: Hemoglobin 7.6 g/dl (14.0-18.0)
--- NOTE | 2022-12-19 12:13 | P.PNIM_ITS ---
Subjective Subjective Date of Service: 12/20/22 Interval History: left foot osteo. Review of Systems has some soarness? foot no fevers or chills Physical Exam Vital Signs: Vital Signs: Last Vital Signs Temp 98.4 F 12/19/22 07:48 Pulse 72 12/19/22 07:48 Resp 17 12/19/22 07:48 BP 153/66 H 12/19/22 07:48 Pulse Ox 98 12/19/22 07:48 O2 Del Method 12/19/22 07:48 BMI result Body Mass Index 28.0 Appearance: Alert.? Oriented X3.? not in distress.?. cvs: rrr, [id number] , no murmur res: clear to auscultation ,no rhonchii or wheezing abd: no rebound or guarding ,nt, bs present. ext .Open wound on left heel, as pictured below. Lower left leg swelling and warmth improved -?heel wound seems similar (wound with necrotic tissue and deep at base there is bone exposed. little tender to palpation surrounding skin ok). neuro: axo3 , nonfocal. Objective Data Active Medications Acetaminophen (Acetaminophen 325 Mg Tablet) 650 mg PO Q6H PRN PRN Reason: Pain, Mild (Pain Scale 1-3) Amlodipine Besylate (Amlodipine Besylate 5 Mg Tablet) 5 mg PO DAILY [facility]; Protocol Last Admin: 12/19/22 08:22 Dose: 5 mg Documented By: ASTRID Atorvastatin Calcium (Atorvastatin Calcium 40 Mg Tablet) 40 mg PO DAILY [facility] Last Admin: 12/19/22 08:22 Dose: 40 mg Documented By: ASTRID Calcitriol (Calcitriol 0.25 Mcg Capsule) 0.25 mcg PO DAILY [facility] Last Admin: 12/19/22 08:22 Dose: 0.25 mcg Documented By: ASTRID Carvedilol (Carvedilol 25 Mg Tablet) 25 mg PO DAILY [facility]; Protocol Last Admin: 12/19/22 08:23 Dose: 25 mg Documented By: ASTRID Clonidine HCl (Clonidine Hcl 0.1 Mg Tablet) 0.1 mg PO DAILY [facility]; Protocol Last Admin: 12/19/22 08:22 Dose: 0.1 mg Documented By: ASTRID Docusate Sodium (Docusate Sodium 100 Mg Capsule) 100 mg PO DAILY PRN PRN Reason: Constipation Ferrous Sulfate (Ferrous Sulfate 324 Mg Tablet.) 324 mg PO BIDWM [facility] Last Admin: 12/19/22 08:22 Dose: 324 mg Documented By: ASTRID Finasteride (Finasteride 5 Mg Tablet) 5 mg PO DAILY [facility] Last Admin: 12/19/22 08:24 Dose: 5 mg Documented By: ASTRID Cefepime HCl 1 gm/ Sodium (Chloride) 50 mls @ 100 mls/hr IV Q24H [facility] Last Infusion: 12/19/22 09:18 Dose: 0 mls/hr Documented By: ASTRID Doxycycline Hyclate 100 mg/ (Sodium Chloride) 250 mls @ 166.67 mls/hr IV Q12H [facility] Last Infusion: 12/19/22 06:37 Dose: 0 mls/hr Documented By: ANAI Ondansetron HCl (Ondansetron Hcl 4 Mg/2 Ml Vial) 4 mg IVPUSH Q8H PRN PRN Reason: Nausea and Vomiting Last Admin: 12/16/22 20:28 Dose: 4 mg Documented By: JOSE Pharmacy Consult (Consult Rx Perform Med Rec) 1 each MISCELLANE ONCE PRN PRN Reason: Consult order Labs 12/19/22 11:37 12/18/22 07:32 Microbiology Microbiology Results: Microbiology 12/16/22 14:43 Blood Culture - Preliminary Blood - Venous No growth after 48 hours. 12/16/22 14:43 Blood Culture - Preliminary Blood - Venous No growth after 48 hours. 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 Pt will be admitted to the hospital for treatment and further evaluation left heel wound concerning for osteomyelitis. Left heel wound concerning for acute osteomyelitis X-ray of left foot shows soft tissue defect over the posterior aspect of the calcaneus with subtle erosion of the underlying bone, concerning for osteomyelitis ct foot-acute osteo. Elevated CRP and ESR, no leukocytosis or fever Patient does not meet sepsis criteria IV abx: Doxycycline and cefepime Keep foot elevated off bed. ID consult,General surgery consult advanced CKD possible due to DM/HTN: Patient's creatinine 6.02 similar , last measured at [facility] on 12/02/2022 at 5.7 with BUN 67 Pt received 1L IVF in ED Follow labs Nephrology consult-urinating sofar ,Keep? I > O,Avoid hypotension and neph rotoxins Anemia,normocytic chronic Patient's H&H of 8.1/24.4 No obvious source of bleeding, pt denies hematemesis, hematochezia, melena Iron studies, B12, folate-noted ? acod , low iron,iron sats seems fine,tibc low ,ferritin high added iron Discussed with patient patient denies any history of any gross bleeding or melena. nephro will follow up-?need procrit Hx of CVA with right-sided hemiparesis Pt seems stable, at baseline Pt eats regular diet with thin liquids at home Pt positioning q2hrs HLD Continue home meds HTN Continue home meds inpatient need:concerning for osteomyelitis-contnue iv antibiotics , might need surgery intervenation. Time Spent With Patient Time: Total time managing care of this patient today ____ minutes. Quality Stroke Does the patient have a stroke diagnosis?: No VTE Prior VTE?: No VTE Risk Level:: Medical - moderate - high VTE Device Contraindication: Treatment Not Indicated VTE Drug Contraindication: N/A - Med Ordered
--- NOTE | 2022-12-19 12:23 | P.CONWO_ITS ---
History of Present Illness Data of Consult Service Date: 12/19/22 Requesting physician: Percy Tang Primary Care Provider: Jeancarlos Serna MD [facility] Reason for consult: left posterior calcaneus ulcer [id number]: 77-year-old male with end-stage renal disease on hemodialysis with history of stroke and unilateral weakness, hypertension and yaa-[id number]-[id number] diabetes who presented to the hospital on December 16 for nonhealing left posterior calcaneus ulcer. He lives at home. He says that he has help at home. Had imaging to support osteomyelitis by way of bony erosion on left foot x-ray. Was started on IV doxycycline and a cephalosporin. ID recommend 6 weeks of IV ertapenem post dialysis days. Unclear if his disposition is to a facility or to home. Current dressing is silver alginate DuraFiber. Review of Systems Review of Systems: no nausea, eating well, likes protein and dessert. No chest pain or SOB. Admits difficulty walking. [facility] Medical History CVA (cerebral vascular accident) Social History Household Members: Unknown / Unable to assess Housing: House Do you presently have visiting nurse or other home services: Yes Alcohol intake: never Patient Tobacco Use Status: Never used Tobacco Smoked in Last 30 Days: No Use of substances other than those prescribed or required for medical reasons: No Currently Displaying Signs/Symptoms of Drug Intoxication Withdrawal: No Have you been hit, kicked, punched, or otherwise hurt by someone within the past year? If so, by whom?: No Do you feel safe in your current relationship?: Yes Is there a partner from a previous relationship who is making you feel unsafe now?: No Are you made to feel afraid or neglected: No Advance Directives: No Advance Directives Information Provided: Yes Do you have thoughts of harming others: None Do you have a plan to hurt others: No Plan Recently lost weight without trying: No How much weight loss: Not applicable Eating poorly because of decreased appetite: No Nutrition screen score: 0 Nutrition Risks: No Nutritional Risk Poor oral hygiene: No service: No Current occupational status: retired Meds Allergies Allergy/AdvReac Type Severity Reaction Status Date / Time metformin [METFORMIN] Allergy Intermediate RASH Unverified 07/23/20 16:03 Active Medications: Current Medications Acetaminophen (Acetaminophen 325 Mg Tablet) 650 mg PO Q6H PRN PRN Reason: Pain, Mild (Pain Scale 1-3) Amlodipine Besylate (Amlodipine Besylate 5 Mg Tablet) 5 mg PO DAILY [facility]; Protocol Last Admin: 12/19/22 08:22 Dose: 5 mg Atorvastatin Calcium (Atorvastatin Calcium 40 Mg Tablet) 40 mg PO DAILY [facility] Last Admin: 12/19/22 08:22 Dose: 40 mg Calcitriol (Calcitriol 0.25 Mcg Capsule) 0.25 mcg PO DAILY [facility] Last Admin: 12/19/22 08:22 Dose: 0.25 mcg Carvedilol (Carvedilol 25 Mg Tablet) 25 mg PO DAILY [facility]; Protocol Last Admin: 12/19/22 08:23 Dose: 25 mg Clonidine HCl (Clonidine Hcl 0.1 Mg Tablet) 0.1 mg PO DAILY [facility]; Protocol Last Admin: 12/19/22 08:22 Dose: 0.1 mg Docusate Sodium (Docusate Sodium 100 Mg Capsule) 100 mg PO DAILY PRN PRN Reason: Constipation Ferrous Sulfate (Ferrous Sulfate 324 Mg Tablet.Dr) 324 mg PO BIDWM [facility] Last Admin: 12/19/22 08:22 Dose: 324 mg Finasteride (Finasteride 5 Mg Tablet) 5 mg PO DAILY [facility] Last Admin: 12/19/22 08:24 Dose: 5 mg Cefepime HCl 1 gm/ Sodium (Chloride) 50 mls @ 100 mls/hr IV Q24H [facility] Last Infusion: 12/19/22 09:18 Dose: Infused Doxycycline Hyclate 100 mg/ (Sodium Chloride) 250 mls @ 166.67 mls/hr IV Q12H [facility] Last Infusion: 12/19/22 06:37 Dose: Infused Ondansetron HCl (Ondansetron Hcl 4 Mg/2 Ml Vial) 4 mg IVPUSH Q8H PRN PRN Reason: Nausea and Vomiting Last Admin: 12/16/22 20:28 Dose: 4 mg Pharmacy Consult (Consult Rx Perform Med Rec) 1 each MISCELLANE ONCE PRN PRN Reason: Consult order Home Medications Medication Instructions Recorded Confirmed Last Taken Type amlodipine 5 mg tablet 1 tab PO DAILY 12/16/22 12/16/22 12/16/22 History atorvastatin 40 mg tablet 1 tab PO DAILY 12/16/22 12/16/22 12/16/22 History calcitriol 0.25 mcg capsule 1 cap PO DAILY 12/16/22 12/16/22 12/16/22 History carvedilol 25 mg tablet 1 tab PO DAILY 12/16/22 12/16/22 12/16/22 History clonidine HCl 0.1 mg tablet 1 tab PO DAILY 12/16/22 12/16/22 12/16/22 History doxycycline hyclate 100 mg capsule 1 cap PO BID 12/16/22 12/16/22 12/16/22 History finasteride 5 mg tablet 1 tab PO DAILY 12/16/22 12/16/22 12/16/22 History Physical Exam Vital Signs and Narrative: Vital Signs: Last Vital Signs Temp 98.4 F 12/19/22 07:48 Pulse 72 12/19/22 07:48 Resp 17 12/19/22 07:48 BP 153/66 H 12/19/22 07:48 Pulse Ox 98 12/19/22 07:48 O2 Del Method 12/19/22 07:48 BMI result Body Mass Index 28.0 Ulcer is on the left posterior calcaneus, not plantar, so Achilles tendon might be at risk, only relevant if he is fully ambulatory. Would argue that stroke was right sided causing left side weakness and therefore pressure injury as primary etiology is of concern. Was happy to see left heel was floated and proper dressing applied by staff. DP pulse is palpable. PT pulse difficult to appreciate with mild edema present. Signs of venous insufficiency by way of hemosiderin staining observed. No redness, warmth or streaking LLE. A bone shard is visible, not mobile, and palpable within the wound bed, which lacks granular quality. Periwound violaceous hue with delayed blanching supports pressure component to nonhealing. Based on exam and expected evolution of pressure, this is a longstanding non hospital acquired ulcer. History of HD may further support this notion. Results Labs 12/19/22 11:37 12/18/22 07:32 Assessment and Plan (1) Wound of left foot: Status: Acute Plan 77-year-old male with history of stroke and debility with impaired ambulation and left posterior calcaneus ulcer with osteomyelitis for which IV antibiotics are indicated and prescribed by ID. Agree with dura fiber AG as primary dressing. Agree with offloading of left heel. Support nutrition as possible in setting of ESRD. Risk of amputation in the setting of diabetes is certainly possible but hopefully avoidable with proper ongoing care. Debridement could be considered by surgery while hospitalized or deferred to outpatient if the plan is to follow-up at wound care clinic. He is not a candidate for HBO because of HD requirements for ESRD. Time Spent With Patient Time: Total time managing care of this patient today ____ minutes.
--- NOTE | 2022-12-19 12:23 | MHC.CDI.CONC ---
CDI Concurrent Query Documentation Clarification: PHYSICIAN'S DOCUMENTATION REQUEST Date of Query: 12/19/22 1224 Patient Name: Julius Leach Admit Date: 12/16/22 Dear Doctor, A review of the medical record indicates additional documentation may be needed. Please review below and update the documentation accordingly. Clinical Indicators: A diagnosis of CKD was documented. 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 Thank you, Mari Upton MS, RN, CCRN Extension: [phone] Please use your independent medical judgment in providing your response. THIS QUERY IS PART OF THE PERMANENT MEDICAL RECORD Provider Response: Other Other Diagnosis: ckd , no tiera
--- NOTE | 2022-12-19 12:32 | P.CDIC_ITS ---
CDI Concurrent Query Documentation Clarification: PHYSICIAN'S DOCUMENTATION REQUEST Date of Query: 12/19/22 1234 Patient Name: Julius Leach Admit Date: 12/16/22 Dear Doctor, A review of the medical record indicates additional documentation may be indicated. Please review below and update the documentation accordingly. Clinical Indicators: A diagnosis of osteomyelitis of L foot wound was documented but lacks specificity. Please provide clarification/specificity based on the correlating findings below: Risk Factors/Clinical Indicators/Treatments Per provider progress note on 12/17: X-ray of left foot shows soft tissue defect over the posterior aspect of the calcaneus with subtle erosion of the underlying bone Per ID consult on 12/17: He presents with worsening left heel ulcer. He has had this over last two weeks at least two weeks ,now worsening. Per wound consult on 12/19: Would argue that stroke was right sided causing left side weakness and therefore pressure injury as primary etiology is of concern. Periwound violaceous hue with delayed blanching supports pressure component to nonhealing. Based on the above, could you please provide, in the Progress Notes, further information regarding the ulcer/wound: * Type (etiology) of ulcer/wound: * Pressure (decubitus) ulcer - (please provide stage: 1-4, unstageable, DTI, etc.) * Diabetic ulcer * Venous stasis ulcer * Other * Unable to determine *Source: National Pressure Ulcer Advisory Panel (NPUAP) Use of terms such as suspected, likely, concern for, or probable (associated with a specific diagnosis that is being evaluated, monitored, or treated as if it exists) are acceptable and can be coded in the inpatient setting, when documented at the time of discharge. Thank you, Mari Upton MS, RN, CCRN Extension: [phone] Please use your independent medical judgment in providing your response. THIS QUERY IS PART OF THE PERMANENT MEDICAL RECORD Provider Response: Other Other Diagnosis: advanced CKD possible due to DM/HTN
[2022-12-19 13:01] LABS: Iron 72 mcg/dL (45-160); Percent Iron Saturation 52 % (15-50); Total Iron Binding Capacity 139 mcg/dL (228-428); Unsaturated Iron Binding 67 ug/dL
[2022-12-19 13:13] LABS: Hematocrit 24.4 % (42.0-52.0); Hemoglobin 8.1 g/dl (14.0-18.0)
[2022-12-19 13:28] LABS: Ferritin 422 ng/mL (20-250); Folate 5.9 ng/mL (> or = 4.0); Vitamin B12 297 pg/mL (200-900)
--- NOTE | 2022-12-19 14:36 | MHC.CM.PN ---
T/W INFORMED THAT PATIENT IS ACTIVE WITH [facility] REFERRAL PLACED TO INQUIRE
--- NOTE | 2022-12-19 15:38 | MHC.CM.PN ---
PATIENT GIVES PERMISSION FOR T/W TO CALL ,[facility] [phone] [facility] FEELS PATIENT NEEDS CAN BE BETTER MANAGED AT A REHAB. SHE IS AWARE THAT [facility] ARE CLOSED TO ADMISSIONS. PER CONVERSATION, SNF REFERRALS PLACED AND [facility] AND PATIENT CAN DETERMINE WHICH, OF ANY, OFFERS THEY PREFER. PLAN IS FOR Monday [facility] DOES NOT WANT ANY REHAB OFFER IF THERE IS AN [id number] COST
[2022-12-19 16:00] VITALS: BP 179/77; PULSE 69; RESP 16; TEMP 36.7; O2SAT 97
[2022-12-19 16:19] VITALS: BP 179/77; PULSE 69; O2SAT 97
--- NOTE | 2022-12-19 16:31 | MHC.CM.PN ---
[facility] OFFERING. THIS IS 'S FIRST ([facility]) TO BE IN TOMORROW MORNING TO DISCUSS
[2022-12-19 19:37] VITALS: BP 179/80; PULSE 67; RESP 16; TEMP 36.8; O2SAT 95
[2022-12-20 04:00] VITALS: BP 174/80; PULSE 61; RESP 18; TEMP 36; O2SAT 96
[2022-12-20] MEDS: Doxycycline Hyclate 100 MG in 0.9 % Sodium Chloride 250 ML 166.67 MG IV (04:47)
[2022-12-20 06:16] LABS: Hematocrit 24.6 % (42.0-52.0)
[2022-12-20 06:43] LABS: INTERNATIONAL NORM RATIO 1.2 (0.9-1.1); Prothrombin Time 13.9 SEC (10.0-13.1)
[2022-12-20 08:00] VITALS: BP 167/77; PULSE 68; RESP 18; TEMP 36.5; O2SAT 95
--- NOTE | 2022-12-20 08:00 | PM.PNNEP ---
Subjective Subjective Date of Service: 12/20/22 Interval history: seen and examined no complaints Physical Exam Vital Signs: Vital Signs: Last Vital Signs Temp 96.8 F 12/20/22 04:00 Pulse 61 12/20/22 04:00 Resp 18 12/20/22 04:00 BP 174/80 H 12/20/22 04:00 Pulse Ox 96 12/20/22 04:00 O2 Del Method 12/20/22 04:00 BMI result Body Mass Index 28.0 Const: General: no acute distress HEENT: Head: Yes normocephalic and Yes atraumatic Neck: Neck: Yes supple Resp: Auscultation: diminished lung sounds Cardio: Heart sounds: S1 normal heart sound present and S2 normal heart sound present GI: Palpation (GI): Soft to palpation and nontender Extrem: General: Yes edema Objective Data Labs 12/20/22 05:29 12/18/22 07:32 Labs: Laboratory Results - last 24 hr 12/18/22 12/19/22 12/19/22 07:32 11:37 12:57 Hgb 7.6 L 8.1 L Hct 23.0 L 24.4 L PT INR Iron 72 TIBC 139 L % Saturation 52 H Unsat Iron Binding 67 Ferritin 422 H Vitamin B12 297 Folate 5.9 Blood Type Antibody Screen 12/19/22 12/20/22 12/20/22 12:57 05:29 05:29 Hgb 8.0 L Hct 24.6 L PT 13.9 H INR 1.2 H Iron TIBC % Saturation Unsat Iron Binding Ferritin Vitamin B12 Folate Blood Type A Negative Antibody Screen NEGATIVE Microbiology Microbiology Results: Microbiology 12/16/22 14:43 Blood - Venous Blood Culture - Preliminary No growth after 48 hours. 12/16/22 14:43 Blood - Venous Blood Culture - Preliminary No growth after 48 hours. Procedures Date of Service Date of Service: 12/20/22 Assessment & Plan Assessment and plan (1) CKD (chronic kidney disease) stage 5, GFR less than 15 ml/min: Status: Acute (2) Diabetic foot infection: Status: Acute Plan kidney function close to baseline advanced CKD due to DM/HTN baseline Scr ~ 5 mg/dl admitted with diabetic foot infection REC avoid PICC line Collins catheter for longterm antibiotic no indication for [employer] follow kidney function and electrolytes Time Spent With Patient Time: Total time managing care of this patient today ____ minutes. Progress Note: Quality Stroke Does the patient have a stroke diagnosis?: No
[2022-12-20] MEDS: cloNIDine HCL 0.1 MG TABLET PO (08:49)
[2022-12-20] MEDS: carvediloL 25 MG TABLET PO (08:49)
[2022-12-20] MEDS: calcitrioL 0.25 MCG CAPSULE PO (08:50)
[2022-12-20] MEDS: Ferrous Sulfate 324 MG TABLET.DR PO ×2 (08:50→16:18)
[2022-12-20] MEDS: Atorvastatin Calcium 40 MG TABLET PO (08:50)
[2022-12-20] MEDS: Finasteride 5 MG TABLET PO (08:50)
[2022-12-20] MEDS: cefEPime HCl 1 GM in 0.9 % Sodium Chloride 50 ML IV (08:50)
[2022-12-20] MEDS: amLODIPine Besylate 5 MG TABLET PO (08:50)
[2022-12-20 09:56] LABS: INTERNATIONAL NORM RATIO 1.2 (0.9-1.1); Prothrombin Time 14.2 SEC (10.0-13.1)
--- NOTE | 2022-12-20 10:51 | P.PNIM_ITS ---
Subjective Subjective Date of Service: 12/20/22 Interval History: left foot osteo. Review of Systems has some soarness? foot no fevers or chills Physical Exam Vital Signs: Vital Signs: Last Vital Signs Temp 97.7 F 12/20/22 08:00 Pulse 68 12/20/22 08:00 Resp 18 12/20/22 08:00 BP 167/77 H 12/20/22 08:00 Pulse Ox 95 12/20/22 08:00 O2 Del Method 12/20/22 08:00 BMI result Body Mass Index 28.0 Appearance: Alert.? Oriented X3.? not in distress.?. cvs: rrr, [id number] , no murmur res: clear to auscultation ,no rhonchii or wheezing abd: no rebound or guarding ,nt, bs present. ext .Open wound on left heel, as pictured below. Lower left leg swelling and warmth improved -?heel wound seems similar (wound with necrotic tissue and deep at base there is bone exposed. little tender to palpation surrounding skin ok). neuro: axo3 , nonfocal. Objective Data Active Medications Acetaminophen (Acetaminophen 325 Mg Tablet) 650 mg PO Q6H PRN PRN Reason: Pain, Mild (Pain Scale 1-3) Amlodipine Besylate (Amlodipine Besylate 5 Mg Tablet) 5 mg PO DAILY [facility]; Protocol Last Admin: 12/20/22 08:50 Dose: 5 mg Documented By: ISABEL Atorvastatin Calcium (Atorvastatin Calcium 40 Mg Tablet) 40 mg PO DAILY [facility] Last Admin: 12/20/22 08:50 Dose: 40 mg Documented By: ISABEL Calcitriol (Calcitriol 0.25 Mcg Capsule) 0.25 mcg PO DAILY [facility] Last Admin: 12/20/22 08:50 Dose: 0.25 mcg Documented By: ISABEL Carvedilol (Carvedilol 25 Mg Tablet) 25 mg PO DAILY [facility]; Protocol Last Admin: 12/20/22 08:49 Dose: 25 mg Documented By: ISABEL Clonidine HCl (Clonidine Hcl 0.1 Mg Tablet) 0.1 mg PO DAILY [facility]; Protocol Last Admin: 12/20/22 08:49 Dose: 0.1 mg Documented By: ISABEL Docusate Sodium (Docusate Sodium 100 Mg Capsule) 100 mg PO DAILY PRN PRN Reason: Constipation Ferrous Sulfate (Ferrous Sulfate 324 Mg Tablet.) 324 mg PO BIDWM [facility] Last Admin: 12/20/22 08:50 Dose: 324 mg Documented By: ISABEL Finasteride (Finasteride 5 Mg Tablet) 5 mg PO DAILY [facility] Last Admin: 12/20/22 08:50 Dose: 5 mg Documented By: ISABEL Cefepime HCl 1 gm/ Sodium (Chloride) 50 mls @ 100 mls/hr IV Q24H [facility] Last Infusion: 12/20/22 09:28 Dose: 0 mls/hr Documented By: ISABEL Doxycycline Hyclate 100 mg/ (Sodium Chloride) 250 mls @ 166.67 mls/hr IV Q12H [facility] Last Infusion: 12/20/22 06:27 Dose: 0 mls/hr Documented By: ANAI Ondansetron HCl (Ondansetron Hcl 4 Mg/2 Ml Vial) 4 mg IVPUSH Q8H PRN PRN Reason: Nausea and Vomiting Last Admin: 12/16/22 20:28 Dose: 4 mg Documented By: JOSE Pharmacy Consult (Consult Rx Perform Med Rec) 1 each MISCELLANE ONCE PRN PRN Reason: Consult order Labs 12/20/22 05:29 12/18/22 07:32 Labs: Laboratory Results - last 24 hr 12/18/22 12/19/22 12/20/22 07:32 12:57 05:29 PT 13.9 H INR 1.2 H Iron 72 TIBC 139 L % Saturation 52 H Unsat Iron Binding 67 Ferritin 422 H Vitamin B12 297 Folate 5.9 Blood Type A Negative Antibody Screen NEGATIVE 12/20/22 09:35 PT 14.2 H INR 1.2 H Iron TIBC % Saturation Unsat Iron Binding Ferritin Vitamin B12 Folate Blood Type Antibody Screen Assessment and Plan (1) CKD (chronic kidney disease): Status: Acute (2) Wound of left foot: Status: Acute (3) Osteomyelitis: Status: Acute Plan 77-year-old male with a PMH significant for?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 Pt will be admitted to the hospital for treatment and further evaluation left heel wound concerning for osteomyelitis. Left heel wound concerning for acute osteomyelitis X-ray of left foot shows soft tissue defect over the posterior aspect of the calcaneus with subtle erosion of the underlying bone, concerning for osteomyelitis ct foot-acute osteo. Elevated CRP and ESR, no leukocytosis or fever Patient does not meet sepsis criteria Keep foot elevated off bed. ID consult,General surgery consult-IV abx: switched to meropenem today ,follow up wound care. d/w Id need total 6 weeks antibiotics. advanced CKD possible due to DM/HTN: Patient's creatinine 6.02 similar , last measured at [facility] on 12/02/2022 at 5.7 with BUN 67 Pt received 1L IVF in ED Follow labs Nephrology consult-urinating sofar ,Keep? I > O,Avoid hypotension and nephrotoxins Anemia,normocytic chronic Patient's H&H of 8.1/24.4 No obvious source of bleeding, pt denies hematemesis, hematochezia, melena Iron studies, B12, folate-noted ? acod , low iron,iron sats seems fine,tibc low ,ferritin high added iron Discussed with patient patient denies any history of any gross bleeding or melena. nephro will follow up-?need procrit Hx of CVA with right-sided hemiparesis Pt seems stable, at baseline Pt eats regular diet with thin liquids at home Pt positioning q2hrs HLD Continue home meds HTN Continue home meds inpatient need:concerning for osteomyelitis-contnue iv antibiotics , awaitin placement. Time Spent With Patient Time: Total time managing care of this patient today ____ minutes. Quality Stroke Does the patient have a stroke diagnosis?: No VTE Prior VTE?: No VTE Risk Level:: Medical - moderate - high VTE Device Contraindication: Treatment Not Indicated VTE Drug Contraindication: N/A - Med Ordered
[2022-12-20 12:26] LABS: Glucose, Whole Blood 105 mg/dL (60-115)
[2022-12-20 14:55] VITALS: BP 157/77; PULSE 60; RESP 16; TEMP 36.9; O2SAT 97
[2022-12-20 15:10] VITALS: BP 159/73; PULSE 56; RESP 16; TEMP 36.9; O2SAT 97
--- NOTE | 2022-12-20 15:47 | MHC.CM.PN ---
PATIENT AND [facility] NOW WANT HOME WITH SERVICES [facility] AND [facility] MADE AWARE. CM AWAITING MENDEZ REPORT
[2022-12-20 15:49] VITALS: BP 154/76; PULSE 59; RESP 16; TEMP 36.3; O2SAT 97
--- NOTE | 2022-12-20 16:17 | HO.RADPN ---
RADIOLOGY Narrative Narrative: RIJ 5 fr single lumen Proline catheter placed. Tip at cavoatrial junction.
[2022-12-20 19:40] VITALS: BP 168/78; RESP 18; TEMP 36; O2SAT 97
[2022-12-21] MEDS: Acetaminophen 325 MG TABLET 650 MG PO (01:05)
--- NOTE | 2022-12-21 07:34 | PM.DS ---
DS: Providers Provider Date of Service: 12/21/22 Date of admission: 12/16/22 16:48 Date of discharge: 12/21/22 Primary care physician: Jeancarlos Serna MD Consults: 12/16/22 17:01 Consult to General Surgery Routine Consulting Provider: Ne Stout Reason for consultation: Left heel wound concerning for osteomyelitis Consult to Infectious Diseases Routine Consulting Provider: Tracie Tidwell Reason for consultation: Left heel wound concerning for osteomyelitis Consult to Nephrology Routine Consulting Provider: Raymond Mckenzie Reason for consultation: CKD, creatinine 6.02, normocytic anemia/aocd,need nair 12/20/22 14:43 Consult to Infectious Diseases Stat Consulting Provider: Tracie Tidwell Reason for consultation: NEW [place] Attending physician on discharge: Tian Real DS: Diagnosis Discharge Diagnosis (1) CKD (chronic kidney disease): Status: Acute (2) Wound of left foot: Status: Acute (3) Osteomyelitis: Status: Acute DS: Summary Hospital Course Hospital Course: 77-year-old male with a PMH significant for?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 Pt accompanied by supplements HPI.? Pt has right-sided hemiparesis s/p CVA 5 1/2 years ago and is essentially bedbound.? states that patient developed a tiny graciela on his foot 2 and half weeks ago that continued to grow and develop quickly.? Patient was unable to see PCP but wound was seen and cared for by [facility]. [facility]. Left leg swelling began a few days ago.? Wound continued to grow and swelling increased until PCP called and pt told to go to ED for evaluation. Patient's only other complaint is an occasional dry chronic cough. Pt denies pain in the foot or leg. No fever, chills, nausea, vomiting. No abdominal pain.? No headache, vision changes.? No chest pain/pressure, palpitations.? Denies shortness of breath. ? ? In the ED patient was afebrile. Labs were significant for no leukocytosis, H&H of 8.7/26.3, creatinine 6.02, BUN 79, lactic acid WNL at 0.7, ESR elevated at 67, C-reactive protein elevated at 4.32. X-ray of foot showed soft tissue defect over the posterior aspect of the calcaneus with subtle erosion of the underlying bone, concerning for osteomyelitis. Venous duplex showed no DVT in the left lower extremity. Pt was treated with ceftriaxone. Pt will be admitted to the hospital for treatment and further evaluation left heel wound concerning for osteomyelitis. Hospital course: Patient admitted to the hospital because of heel ulcer and found to have acute osteomyelitis possible associated with pressure wound: elevated esr,crp, ct foot showed acute osetomyelitis -Started on IV antibiotics, also seen by surgery: Recommended to continue IV antibiotics and offloading of left heel, frequent turning. Follow-up with wound care outpatient.silver alginate, barrier zinc oxide cream, and wrap foot to keep edema down need to offload and elevate off bed. Seen by infectious disease-patient had no fever, no leukocytosis, blood culture negative-recommended IV antibiotics for 6 weeks, discussed with the Nephro and min catheter was placed. Patient is to complete IV antibiotics for 38 more days( end date is 01/27/23).outpt wound care clinic visits. Follow CBC, BMP, ESR, CRP, LFTs Q weekly while on antibiotics. Patient has advanced CKD: Monitor renal function and electrolytes outpatient. Consider outpatient Nephro following. ch. normocytic Anemia: Possibly related to chronic disease has advanced CKD. Monitor CBC outpatient, consider patient for evaluation (consider Procrit). Above management discussed with the patient and his in detail length they both understand and in agreement with above plan. Assessment and plan coordination time spent 50 minute. Time Spent with Patient Time attestation: Total time managing care of this patient today ____ minutes. Discharge coordination time: Greater than 30 minutes Quality: Safe Use of Opioids Does Pt have an Active Cancer Diagnosis on the Problem List?: No Quality: Stroke Does the patient have a stroke diagnosis?: No Physical Exam Vital Signs: Vital Signs: Last Vital Signs Temp 96.8 F 12/20/22 19:40 Pulse 59 12/20/22 15:49 Resp 18 12/20/22 19:40 BP 168/78 H 12/20/22 19:40 Pulse Ox 97 12/20/22 19:40 O2 Del Method 12/20/22 19:40 BMI result Body Mass Index 28.0 Appearance: Alert.? Oriented X3.? not in distress.?. cvs: rrr, [id number] , no murmur res: clear to auscultation ,no rhonchii or wheezing abd: no rebound or guarding ,nt, bs present. ext .Open wound on left heel, Lower left leg swelling and warmth improved -?heel wound seems similar -pressure heel wound-deep at base there is bone exposed. no erythema or discharge. neuro: axo3 , nonfocal. DS: Data Data Completed and Pending Labs on day of discharge: Laboratory Results - last 24 hr 12/20/22 12/20/22 09:35 12:21 PT 14.2 H INR 1.2 H POC Glucose 105 Preliminary micro results at discharge 12/16/22 14:43 Blood Culture - Preliminary Blood - Venous No growth after 48 hours. 12/16/22 14:43 Blood Culture - Preliminary Blood - Venous No growth after 48 hours. Imaging Chest x-ray: Radiologist's impression: ITS Impressions Venous Duplex 12/16/22 11:05 IMPRESSION: No DVT demonstrated in the left lower extremity. Foot X-Ray 12/16/22 11:10 IMPRESSION: Soft tissue defect over the posterior aspect of the calcaneus. There is subtle erosion of the underlying bone. This is concerning for osteomyelitis. Consider MRI evaluation if clinically indicated for further delineation. Foot CT 12/17/22 09:13 IMPRESSION: 1. Soft tissue ulceration at the dorsal aspect of the heel measuring up to 2.4 cm in craniocaudal dimension. Adjacent cortical erosion and periosteal reaction at the posterior calcaneus measuring up to 1.9 cm, consistent with acute osteomyelitis. 2. Corticated ossification in the region of the distal Achilles tendon with the tendon appearing attenuated and nearly completely absent distal to this area. Findings could represent dystrophic ossification related to remote trauma or a remote avulsion injury. Evaluation of the tendon is limited on CT examination. 3. Circumferential subcutaneous edema without organized fluid collection or abscess formation. 4. 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 Guidance Ultrasound 12/20/22 14:57 IMPRESSION: Right internal jugular 5 [place] single-lumen Proline catheter placement. Insertion Non-Tunneled Catheter 12/20/22 14:57 IMPRESSION: Right internal jugular 5 [place] single-lumen Proline catheter placement. Discharge Plan Discharge Anticipated Discharge Date/Time: 12/21/22 07:21 Patient Disposition: Home Health Service Discharge Diagnosis: foot osteomyelitis , ckd, foot wound Referrals: Jeancarlos Serna MD [Primary Care Provider] - 1 Week Raymond Mckenzie MD [Physician] - 1 Week (follow up outpatient.) Ne Stout MD [Physician] - 1 Week (follow up outpatient) Discharge Medications: New ertapenem 1 gram recon soln 0.5 g IV DAILY Qty: 38 0RF Continued atorvastatin 40 mg tablet 1 tab PO DAILY carvedilol 25 mg tablet 1 tab PO DAILY clonidine HCl 0.1 mg tablet 1 tab PO DAILY amlodipine 5 mg tablet 1 tab PO DAILY calcitriol 0.25 mcg capsule 1 cap PO DAILY finasteride 5 mg tablet 1 tab PO DAILY Held doxycycline hyclate 100 mg capsule 1 cap PO BID Hold Instructions: Resume on 12/21/22. Discharge Orders: Discharge Order (Routine); Ordered 12/21/22 Ordered By: Tian Real Diet: Advance to usual diet Activity on Discharge: As tolerated Stand Alone Forms: Patient Portal Discharge page Care Plan Goals: Patient admitted to the hospital because of heel ulcer and found to have possible bone infection: Started on IV antibiotics, also seen by surgery: Recommended to continue IV antibiotics and offloading of left heel, frequent turning. Follow-up with wound care outpatient. Seen by infectious disease-patient had no fever, no leukocytosis, blood culture negative-recommended IV antibiotics for 6 weeks, discussed with the Nephro and min catheter was placed. Patient is to complete IV antibiotics for 38 more days( end date is 01/27/23). Patient and his family was strongly advised to go to rehab considering his mobility situation as well as heel wound-but currently there decided to go to home. Strongly advised for good wound care, frequent turning and monitoring wound-if further worsening patient is to go to nearest emergency room. In addition patient was told to follow-up with wound care, as per patient -they already have wound care appointment. Follow CBC, BMP, ESR, CRP, LFTs Q weekly while on antibiotics. Patient has advanced CKD: Monitor renal function and electrolytes outpatient. Consider outpatient Nephro following. ch. normocytic Anemia: Possibly related to chronic disease has advanced CKD. Monitor CBC outpatient, consider patient for evaluation (consider Procrit). Above management discussed with the patient and his in detail length they both understand and in agreement with above plan. Health Concerns: As above. Plan of Treatment: As above. Assessment: As above Patient Instructions: Chronic Kidney Disease (DC), Osteomyelitis (DC), Anemia (DC)
[2022-12-21] MEDS: calcitrioL 0.25 MCG CAPSULE PO (08:02)
[2022-12-21] MEDS: Atorvastatin Calcium 40 MG TABLET PO (08:02)
[2022-12-21] MEDS: cloNIDine HCL 0.1 MG TABLET PO (08:02)
[2022-12-21] MEDS: Finasteride 5 MG TABLET PO (08:02)
[2022-12-21] MEDS: amLODIPine Besylate 5 MG TABLET PO (08:03)
[2022-12-21] MEDS: Ferrous Sulfate 324 MG TABLET.DR PO (08:03)
[2022-12-21] MEDS: carvediloL 25 MG TABLET PO (08:03)
--- NOTE | 2022-12-21 11:01 | P.PNNP_ITS ---
Subjective Subjective Date of Service: 12/21/22 Interval history: seen and examined no complaints Physical Exam Vital Signs: Vital Signs: Last Vital Signs Temp 96.8 F 12/20/22 19:40 Pulse 59 12/20/22 15:49 Resp 18 12/20/22 19:40 BP 168/78 H 12/20/22 19:40 Pulse Ox 97 12/20/22 19:40 O2 Del Method 12/20/22 19:40 BMI result Body Mass Index 28.0 Const: General: no acute distress HEENT: Head: Yes normocephalic and Yes atraumatic Neck: Neck: Yes supple Resp: Auscultation: diminished lung sounds Cardio: Heart sounds: S1 normal heart sound present and S2 normal heart sound present GI: Palpation (GI): Soft to palpation and nontender Extrem: General: Yes edema Objective Data Labs 12/20/22 05:29 12/18/22 07:32 Labs: Laboratory Results - last 24 hr 12/20/22 12:21 POC Glucose 105 Microbiology Microbiology Results: Microbiology 12/16/22 14:43 Blood - Venous Blood Culture - Preliminary No growth after 48 hours. 12/16/22 14:43 Blood - Venous Blood Culture - Preliminary No growth after 48 hours. 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 Progress Note: Quality Stroke Does the patient have a stroke diagnosis?: No
[2022-12-21] MEDS: Ertapenem Sodium 0.5 GM in 0.9 % Sodium Chloride 50 ML IV (13:59)
--- NOTE | 2022-12-21 14:06 | MHC.CM.PN ---
ZO (IN ROOM) INSISTS TO DRIVE PATIENT HOME AWARE OF FALL CONCERNS AND PATIENT GETTING IN AND OUT OF CAR SAFELY. PATIENT STATES THAT INSURANCE COMPANY WILL NOT PAY FOR TRANSPORT. T/W REMINDED PATIENT THAT HOSPITAL BILLS MEDICARE AND PATIENT QUALIFIES FOR AMBULANCE. DOES NOT AGREE TO TRANSPORT VIA AMBULANCE. RN AWARE OF PLAN HOME TODAY WITH RESUMPTION OF CARE TENDERS [facility] AND [facility] REFERRAL. IMM 12/19 PREVIOUSLY COMPLETED
== END 2022-12-21 15:28 | disposition home health service (06) | DRG 638 ==
LOC: HO.ED 11:38 → HO.EDOVER 17:08 → HO.S3 22:27
PROVIDERS: Nurse Practitioner Family; Radiology Diagnostic Radiology; Admitting Provider Student in an Organized Health Care Education/Training Program; Emergency Provider Student in an Organized Health Care Education/Training Program; PCP Internal Medicine; Visit Provider Internal Medicine
PROC: 02HV33Z Insertion of Infusion Device into Superior Vena Cava, Percutaneous Approach (ICD-10-PCS; principal; 2022-12-20 13:00)
DX: E11.69 Type 2 diabetes mellitus with other specified complication (principal); I12.0 Hypertensive chronic kidney disease with stage 5 chronic kidney disease or end stage renal disease; I69.351 Hemiplegia and hemiparesis following cerebral infarction affecting right dominant side; M86.172 Other acute osteomyelitis, left ankle and foot; N18.5 Chronic kidney disease, stage 5; D63.1 Anemia in chronic kidney disease; L89.629 Pressure ulcer of left heel, unspecified stage; Z66 Do not resuscitate; E78.5 Hyperlipidemia, unspecified; I69.320 Aphasia following cerebral infarction; D64.9 Anemia, unspecified; E11.22 Type 2 diabetes mellitus with diabetic chronic kidney disease; Z20.822 Contact with and (suspected) exposure to COVID-19; Z88.8 Allergy status to other drugs, medicaments and biological substances; Z79.899 Other long term (current) drug therapy
CPT/HCPCS: 36415; 36556; 73630; 73700; 76937; 80048; 80053; 82607; 82728; 82746; 82947; 83540; 83605; 85014; 85018; 85025; 85610; 85652; 86140; 86850; 86900; 86901; 87040; 87635; 93971; 97162; 99152; 99153; 99285; J0692; J0696; J1335; J1643; J2185; J2405

== ENCOUNTER → 2023-01-16 13:27 | Outpatient (BNVA) | payer MEDICARE, SELFPAY | PROVIDERS: PCP Internal Medicine; Visit Provider Internal Medicine | DX: E11.628 Type 2 diabetes mellitus with other skin complications (principal); L08.9 Local infection of the skin and subcutaneous tissue, unspecified | CPT/HCPCS: 99212 ==

== ENCOUNTER 2023-01-18 13:49 | Outpatient (REF) | payer MEDICARE, SELFPAY ==
--- NOTE | ~2023-01-18 | IR_ITS ---
EXAMINATION: REMOVAL OF SIMMS CATHETER CLINICAL INFORMATION: Treatment for osteomyelitis has been done. Needs removal of Simms 12/20/2022 catheter. COMPARISON: None available. TECHNIQUE: Following explaining the procedure, benefits and risk of removal of Simms catheter, patient was placed supine on ultrasound stretcher and the area around the right Simms catheter anterior chest wall was cleaned and draped in usual sterile manner with 2% chlorhexidine solution. 1% lidocaine was injected at puncture site. A blunt dissection was performed from the skin incision to the palpable cuff which was felt with blunt artery forceps. The tissue around the cuff was loosened and the catheter was clearly pulled out. Complete hemostasis was achieved at puncture site with compression held for 5 minutes. Pressure dressing was placed at the puncture site. Patient tolerated the procedure extremely well. 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 Very minimal bleeding seen.
== END 2023-01-18 13:50 | disposition home or self-care (01) ==
LOC: HO.RADIR 13:49
PROVIDERS: PCP Internal Medicine; Visit Provider Internal Medicine
DX: M86.9 Osteomyelitis, unspecified (principal)
CPT/HCPCS: 36589